=== PATIENT | female | born 1940 | race African-American/Black ===

== ENCOUNTER 2018-03-05 19:53 | Inpatient (IN) | payer BC, OTHER ==
[~2018-03-05] VITALS: Ht 157.5 cm; Wt 58.5 kg
[2018-03-05] MEDS ORDERED: ADALAT10 MG ORAL (19:58)
[2018-03-05] MEDS ORDERED: METOPROLOL SUCC25 MG ORAL (19:58)
[2018-03-05] MEDS ORDERED: AMLODIPINE BES2.5 MG ORAL (19:58)
[2018-03-05] MEDS ORDERED: LOPRESSOR5 MG/5 ML IV (19:58)
[2018-03-05] MEDS ORDERED: LISINOPRIL5 MG ORAL (19:58)
[2018-03-05 20:00] VITALS: BP 144/74
--- NOTE | 2018-03-05 20:03 | Emergency Room Report ---
History of Present Illness General Chief Complaint: Abnormal Labs Source: Patient, EMS Present Illness HPI Patient is a 77-year-old female brought in by EMS after altered mental status. Patient was noted to have the decreased blood sugar. Patient had prior history of intermittent episodes of hypoglycemia. Patient was noted to have end-stage renal disease and had been dialyzed on Friday. She reports having had generalized cold sensation. The patient had been given D50 by EMS after her sugar was noted to be in the 30s with improved blood sugar greater than 300. Allergies: Coded Allergies: No Known Allergies (Verified , 06/09/11) Patient History Past Medical History: see triage record, DM, dialysis, other Last Menstrual Period: none Reviewed Nursing Documentation: PMH: Agreed; PSxH: Agreed Nursing Documentation-PMH Hx Hypertension: Yes Hx Diabetes: Yes Hx Dialysis: Yes - MWF Review of Systems All Other Systems: negative except mentioned in HPI Physical Exam Vital Signs Date Time Temp Pulse Resp B/P (MAP) Pulse Ox O2 Delivery O2 Flow Rate FiO2 03/05/18 19:53 98.9 70 18 192/87 98 Room Air 99.0 Sp02 EP Interpretation: reviewed, normal General Appearance: normal inspection, GCS 15, Chronically Ill Head: atraumatic ENT: normal ENT inspection, hearing grossly normal, normal voice Neck: normal inspection, full range of motion, supple, no bony tend Respiratory: normal inspection, lungs clear, normal breath sounds, no respiratory distress, no retraction, no wheezing Cardiovascular #1: regular rate, rhythm, no edema Gastrointestinal: normal inspection, normal bowel sounds, non tender, soft, no guarding, no hernia Genitourinary: no CVA tenderness Musculoskeletal: normal inspection, back normal, normal range of motion Neurologic: normal inspection, alert, oriented x3, responsive, business intelligence analyst III-XII nml as tested, motor strength/tone normal, speech normal Psychiatric: normal inspection, judgement/insight normal, mood/affect normal Skin: normal inspection, normal color, no rash, pallor Medical Decision Making Diagnostic Impression: Primary Impression: Hypoglycemia Additional Impressions: ESRD (end stage renal disease) Generalized weakness ER Course Patient presented for low blood sugar. The differential diagnosis included was not limited to adrenal insufficiency, insulin overdose, sepsis, sulfonylurea overdose among others.Because of complexity of patient's case laboratory testing and imaging studies were ordered.EKG interpreted by me showed normal sinus rhythm with a rate of 59 with right bundle-branch block without acute ST or T wave changes. Patient was noted to have improvement in blood sugar. Patient was discussed with Dr. Alfredo who agreed to admit the patient. I attempted to contact Dr. Velez for renal consult, will endorse this consult to Dr. Bar. Labs Test 03/05/18 20:20 White Blood Count 4.5 K/UL (4.8-10.8) Red Blood Count 4.26 M/UL (4.20-5.40) Hemoglobin 11.9 G/DL (12.0-16.0) Hematocrit 37.0 % (37.0-47.0) Mean Corpuscular Volume 87 FL (80-99) Mean Corpuscular Hemoglobin 28.0 PG (27.0-31.0) Mean Corpuscular Hemoglobin Concent 32.2 G/DL (32.0-36.0) Red Cell Distribution Width 15.2 % (11.6-14.8) Platelet Count 164 K/UL (150-450) Mean Platelet Volume 5.1 FL (6.5-10.1) Neutrophils (%) (Auto) 55.1 % (45.0-75.0) Lymphocytes (%) (Auto) 27.9 % (20.0-45.0) Monocytes (%) (Auto) 11.3 % (1.0-10.0) Eosinophils (%) (Auto) 4.1 % (0.0-3.0) Basophils (%) (Auto) 1.6 % (0.0-2.0) Sodium Level 135 MMOL/L (136-145) Potassium Level 4.4 MMOL/L (3.5-5.1) Chloride Level 100 MMOL/L (98-107) Carbon Dioxide Level 23 MMOL/L (21-32) Anion Gap 12 mmol/L (5-15) Blood Urea Nitrogen 41 mg/dL (7-18) Creatinine 7.6 MG/DL (0.55-1.30) Estimat Glomerular Filtration Rate mL/min (>60) Glucose Level 194 MG/DL (74-106) Lactic Acid Level 1.00 mmol/L (0.4-2.0) Calcium Level 9.9 MG/DL (8.5-10.1) Total Bilirubin 0.5 MG/DL (0.2-1.0) Aspartate Amino Transf (AST/SGOT) 35 U/L (15-37) Alanine Aminotransferase (ALT/SGPT) 23 U/L (12-78) Alkaline Phosphatase 69 U/L (46-116) Troponin I 0.009 ng/mL (0.000-0.056) Total Protein 8.5 G/DL (6.4-8.2) Albumin 3.5 G/DL (3.4-5.0) Globulin 5.0 g/dL Albumin/Globulin Ratio 0.7 (1.0-2.7) EKG Diagnostic Results Rate: normal Rhythm: NSR ST Segments: other - rbbb Last Vital Signs Date Time Temp Pulse Resp B/P (MAP) Pulse Ox O2 Delivery O2 Flow Rate FiO2 03/05/18 19:53 98.9 70 18 192/87 98 Room Air 99.0 Status: unchanged Disposition: ADMITTED INPATIENT Condition: Serious Jose Ortiz MD Mar 05, 2018 20:03
[2018-03-05] MEDS ORDERED: LISINOPRIL40 MG ORAL (20:50)
[2018-03-05] MEDS ORDERED: CATAPRES-TTS 21 EACH TDERMAL (20:50)
[2018-03-05] MEDS ORDERED: BETIMOL5 M2 LEFT EYE (20:50)
[2018-03-05] MEDS ORDERED: METOPROLOL TART50 M1 ORAL (20:50)
[2018-03-05] MEDS ORDERED: HUMIRA40 MG/0.2 SUBQ (20:50)
[2018-03-05] MEDS ORDERED: AMLODIPINE BESY10 MG ORAL (20:50)
[2018-03-05] MEDS ORDERED: NIFEDIPINE ER60 M2 ORAL (20:50)
[2018-03-05] MEDS ORDERED: MULTIVITAMINS1 EAC2 ORAL (20:50)
[2018-03-05 20:56] LABS: BASOPHILS % (AUTO) 1.6 % (0.0-2.0); EOSINOPHILS % (AUTO) 4.1 % (0.0-3.0); HEMOGLOBIN 11.9 G/DL (12.0-16.0); LYMPHOCYTES % (AUTO) 27.9 % (20.0-45.0); MEAN CORPUSCULAR VOLUME 87 FL (80-99); MONOCYTES % (AUTO) 11.3 % (1.0-10.0); NEUTROPHILS % (AUTO) 55.1 % (45.0-75.0); PLATELET COUNT 164 K/UL (150-450); RED BLOOD COUNT 4.26 M/UL (4.20-5.40); RED CELL DISTRIBUTION WIDTH 15.2 % (11.6-14.8); WHITE BLOOD COUNT 4.5 K/UL (4.8-10.8)
[2018-03-05 21:10] LABS: ANION GAP 12 mmol/L (5-15); BLOOD UREA NITROGEN 41 mg/dL (7-18); CALCIUM 9.9 MG/DL (8.5-10.1); CARBON DIOXIDE 23 MMOL/L (21-32); CHLORIDE 100 MMOL/L (98-107); CREATININE 7.6 MG/DL (0.55-1.30); POTASSIUM 4.4 MMOL/L (3.5-5.1); SODIUM 135 MMOL/L (136-145)
[2018-03-05 21:14] LABS: ALANINE AMINOTRANSFERASE 23 U/L (12-78); ALBUMIN 3.5 G/DL (3.4-5.0); ALBUMIN/GLOBULIN RATIO 0.7 (1.0-2.7); ALKALINE PHOSPHATASE 69 U/L (46-116); ASPARTATE AMINO TRANSFERASE 35 U/L (15-37); BILIRUBIN,TOTAL 0.5 MG/DL (0.2-1.0)
[2018-03-05] MEDS ORDERED: D5 1/2NS 1,000 ML IV SCH (22:00)
[2018-03-05] MEDS ORDERED: Lisinopril 20mg tab ORAL SCH (23:30)
[2018-03-05] MEDS ORDERED: Metoprolol Tartrate 50mg tab ORAL SCH (23:30)
[2018-03-06] VITALS (7 sets, daily range): BP systolic 143–194; BP diastolic 67–104
[2018-03-06 06:15] LABS: BASOPHILS % (AUTO) 1.7 % (0.0-2.0); EOSINOPHILS % (AUTO) 4.7 % (0.0-3.0); HEMATOCRIT 36.6 % (37.0-47.0); HEMOGLOBIN 11.8 G/DL (12.0-16.0); LYMPHOCYTES % (AUTO) 26.4 % (20.0-45.0); MEAN CORPUSCULAR VOLUME 87 FL (80-99); MONOCYTES % (AUTO) 11.6 % (1.0-10.0); NEUTROPHILS % (AUTO) 55.7 % (45.0-75.0); PLATELET COUNT 199 K/UL (150-450); RED BLOOD COUNT 4.21 M/UL (4.20-5.40); RED CELL DISTRIBUTION WIDTH 14.9 % (11.6-14.8); WHITE BLOOD COUNT 5.5 K/UL (4.8-10.8)
[2018-03-06] MEDS: NovoLOG Insulin Flexpen SUBQ SCH ×4 (06:37→20:56)
[2018-03-06 06:49] LABS: ALANINE AMINOTRANSFERASE 21 U/L (12-78); ALBUMIN 3.2 G/DL (3.4-5.0); ALBUMIN/GLOBULIN RATIO 0.7 (1.0-2.7); ALKALINE PHOSPHATASE 73 U/L (46-116); ANION GAP 10 mmol/L (5-15); ASPARTATE AMINO TRANSFERASE 27 U/L (15-37); BILIRUBIN,TOTAL 0.3 MG/DL (0.2-1.0); BLOOD UREA NITROGEN 46 mg/dL (7-18); CALCIUM 9.2 MG/DL (8.5-10.1); CARBON DIOXIDE 25 MMOL/L (21-32); CHLORIDE 103 MMOL/L (98-107); CHOLESTEROL 139 MG/DL (< 200); CREATININE 7.7 MG/DL (0.55-1.30); HDL CHOLESTEROL 85 MG/DL (40-60); PHOSPHORUS 5.3 MG/DL (2.5-4.9); POTASSIUM 4.8 MMOL/L (3.5-5.1); SODIUM 138 MMOL/L (136-145); TRIGLYCERIDES 25 MG/DL (30-150)
[2018-03-06] MEDS: Lisinopril 20mg tab ORAL SCH ×2 (09:00→17:26)
[2018-03-06] MEDS ORDERED: Metoprolol Tartrate 50mg tab ORAL SCH (09:00)
--- NOTE | 2018-03-06 09:40 | Consultation ---
Consult Note Consult Note asked to eval for dialysis management Patient is a 77-year-old female brought in by EMS after altered mental status. Patient was noted to have the decreased blood sugar. Patient had prior history of intermittent episodes of hypoglycemia. Patient was noted to have end-stage renal disease and had been dialyzed on Friday. She reports having had generalized cold sensation. The patient had been given D50 by EMS after her sugar was noted to be in the 30s with improved blood sugar greater than 300. No Known Allergies (Verified , 06/09/11) Hx Hypertension: Yes Hx Diabetes: Yes Hx Dialysis: Yes - MWF interviewed examined on HD for past 6 months dialysis site in [place] complains of right hand weakness since yesterday Assessment/Plan ESRD HTN Right hand weakness DM by history Adjust BP meds- HD today ASA Gastric support 2D echo MR Brain Neuro eval? Zion Velez MD Mar 06, 2018 09:40
[2018-03-06] MEDS ORDERED: Metoprolol 25mg tab ORAL SCH (10:00)
[2018-03-06] MEDS: Aspirin Baby 81mg ORAL SCH (10:32)
--- NOTE | 2018-03-06 11:19 | Diagnostic Imaging Report ---
Indication: Shortness of breath Technique: One view of the chest Comparison: none Findings: There is a right chest tunneled dialysis catheter in place. The lungs and pleural spaces are clear. The heart size is borderline enlarged. The aorta is tortuous and calcified Impression: No acute process Borderline cardiomegaly
--- NOTE | 2018-03-06 11:31 | Consultation ---
Consult Note Consult Note NEUROLOGY CONSULTATION: Full note dictated #[id number] 77 y/o, RH, BF with PH of HTN, DM, ESRD on HD. On 03/05/18 on awakening she noted that her right hand was weak and numb. Then when she tried to walk she also noted that her right leg was weak. The problem has continued. ON EXAM: Mild problems with memory, VSF, HCF and language. Right VII central Right hemiparesis. Brisker right DTRs - though DTRs globally decreased. Right paretic gait. IMPRESSION: Left brain stroke with right hemiparesis. REC: MRI of brain. CVNIP W/U for stroke. If no cerebral hemorrhage start Plavix. BP/BS control PT/OT/SLT Mulugeta Velarde M.D., M.S.P.H. MULUGETA VELARDE Mar 06, 2018 11:31
[2018-03-06] MEDS: Docusate 100mg cap ORAL SCH ×2 (13:36→17:26)
--- NOTE | 2018-03-06 13:50 | Diagnostic Imaging Report ---
Indication: 77-year-old female with right hemiparesis Technique: sagittal T1 fast spin echo, axial T1 FLAIR, axial T2 FLAIR, axial T2 FS PROPELLER, axial T2* GRE, axial diffusion weighted images. ADC and exponential ADC maps generated Comparison: 06/10/2011 Findings: There is a focus of diffusion restriction in the medulla just to the left of midline. This demonstrates slightly increased T2 signal. No associated hemorrhage. There is a subtle area of diffusion restriction adjacent to the temporal horn of the right lateral ventricle where it joins the atria, with equivocal evidence of associated T2 abnormality. No evidence of associated hemorrhage. No other foci of restricted diffusion are demonstrated. There is a small punctate focus of susceptibility artifact in the right temporal lobe. No acute hemorrhage or edema. No mass effect nor midline shift. There is age-related enlargement of the ventricles and extra axial CSF spaces. There is fairly extensive focal and confluent periventricular and deep white matter T2 hyperintensity there is evidence of prior cataract surgery on the left. The sinuses are clear. The vascular flow voids are intact.. Visualized orbits and sinuses are unremarkable. Impression: Positive for acute infarct of the left side of the medulla Subtle but probable acute focal lacunar infarct of the right temporal lobe in the periventricular region Negative for acute intracranial bleed or mass effect Age-related volume loss. Periventricular deep white matter high T2 signal, probably on the basis of chronic microvascular ischemic changes. Demyelinating disease less likely, also possibility Findings discussed by phone with Dr. Velarde at the time of interpretation
--- NOTE | 2018-03-06 16:45 | History and Physical Report ---
DATE OF ADMISSION: 03/05/2018 HISTORY OF PRESENT ILLNESS: This is a very pleasant 77-year-old female, who was brought in by paramedics because of altered mental status. The patient was noted to be hypoglycemic. There are previous episodes of hyperglycemia as well. The patient has a history of ESRD and she is on dialysis. She was last dialyzed on Friday, which was 24 hours ago. The patient also reports that her right upper extremity is weak and it started in the last 24 to 48 hours. PAST MEDICAL HISTORY: Notable for hypertension, diabetes mellitus, and ESRD, on dialysis. SURGERIES: Right PermCath catheter. HOME MEDICATIONS: Include Colace, Renvela, Lopressor, aspirin, multivitamins, Prinivil, nifedipine, insulin sliding scale presently, and hydralazine. She is not known to be on any long-acting sulfonylurea. ALLERGIES: None reported. PHYSICAL EXAMINATION: GENERAL: Reveals an elderly female. VITAL SIGNS: Blood pressure is 130/70, heart rate is 57, and respirations 18. She is afebrile. HEENT: Unremarkable. CHEST: Shows clear breath sounds bilaterally. ABDOMEN: Soft. EXTREMITIES: Right PermCath catheter is noted. There is no peripheral edema. No signs of clubbing. NEUROLOGIC: She is alert and oriented x3. She has mild 4+/5 weakness of the right upper extremity. Remainder of the exam is unremarkable. LABORATORY DATA: Lab testing is notable for creatinine of 7.7, proBNP 2264, and albumin 3.2. Hemoglobin A1c 6.1. Hemoglobin 11.8 and platelet count is normal. IMPRESSION: 1. Rule out cerebrovascular accident. 2. Hypoglycemia. 3. End-stage renal disease, on dialysis. DISCUSSION: 1. Admit to the hospital. 2. We will monitor on sliding scale. 3. Continue diet. 4. Continue home medications. 5. Avoid oral hypoglycemics. 6. We will consult Neurology for the possibility of a new CVA. We will also order MRI brain. Baljit Alfredo M.D. DR: CHRISTINA JOB#: [id number] CC:
--- NOTE | 2018-03-06 18:30 | Consultation ---
DATE OF CONSULTATION: 03/06/2018 NEUROLOGY CONSULTATION CONSULTING PHYSICIAN: Keith Velarde M.D. REQUESTING PHYSICIAN: Nick Alfredo M.D. HISTORY: Ms July Hardwick is a 77-year-old, right-handed, black lady, from [place] who does have a past history of hypertension, diabetes mellitus, and end-stage renal disease for which she is hemodialysis dependent. On 03/05/2018, on awakening, she noted that her right hand was weak and numb. When she tried to walk, she also noted that her right leg was weak and she was quite unsteady on her feet. She did not notice any problems with speech, language, vision or other neurological symptoms. She denies any similar symptoms in the past. As these problems continued, she presented to the [facility] Emergency Room and has since been admitted. Today, she feels minimally better compared to yesterday. She however still continues to have significant weakness on the right side. PAST MEDICAL HISTORY: Significant for hypertension, diabetes mellitus, and end-stage renal disease for which she is hemodialysis dependent. FAMILY HISTORY: Significant for high blood pressure and diabetes mellitus in other family members. PERSONAL HISTORY: Home: She lives alone. 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 Habits: She used to smoke in the past, but stopped smoking numerous years ago. She used to have a rare alcoholic drink in the past, but stopped drinking numerous years ago. She denies use of any illicit drugs. MEDICATIONS: Present medications include metoprolol, Renvela, Colace, aspirin 162 mg daily, multivitamins, lisinopril, nifedipine, insulin and hydralazine. PHYSICAL EXAMINATION: GENERAL: She is a well-developed, well-nourished, pleasant black lady, lying in bed, in no acute distress. VITAL SIGNS: Pulse 57/minute, blood pressure 150/70 mmHg, respirations 18/minute, and temperature 97.5 degrees Fahrenheit. HEAD: Normocephalic and atraumatic. NECK: No neck rigidity was observed. EENT: Examination benign. NEUROLOGIC EXAMINATION: MENTAL STATUS EXAMINATION: She was awake and alert. She was oriented to person, place, and time. She was able to recall 3/3 words immediately, but could only remember 2/3 words in 1 minute and 3 minutes. She was able to remember presidents Trump through Rice Haroon spontaneously, but needed hints to remember through Rice senior. Her mathematical skills were impaired. Her visuospatial function was also impaired. SPEECH: She had a mild dysarthria for labial nature. LANGUAGE: She had anomia for low-frequency words. CRANIAL NERVE EXAMINATION: II: The visual marie were intact on confrontation testing. III, IV & : External ocular movements were full and the pupils 3 mm in diameter, equal, round, regular, and reactive to light. V: She had normal facial sensations and the temporales, masseters, and pterygoids functioned normally. VII: She had right VII central facial paresis. VIII: She was able to hear well and had no nystagmus. IX: The palate moved symmetrically on phonation. X: She had no hoarseness of voice. XI: The sternocleidomastoids and trapezii functioned normally. XII: The tongue was in the midline without any fasciculations or atrophy. MOTOR SYSTEM: The tone was normal in all four extremities. Examination of muscle mass revealed no focal wasting. Examination of power revealed G 5/5 power except for G 4/5 power in the right finger extensors, G 4+/5 power in the right finger flexors, G 4+/5 power in the right deltoid, G 4/5 power in the right iliopsoas, and G 4+/5 power in the right toe extensors, and ankle dorsiflexors. SENSORY EXAMINATION: She had intact sensations to pinprick, light touch, and graphesthesia. COORDINATION: She performed well on edwnjn-sa-bwpv and vlgd-bw-dfjd testing, but the movements on the right side were performed in a slow fashion. REFLEXES: 1+ on the right and trace + on the left at the biceps, triceps, brachioradialis, and knees. 0 at both ankles. The plantar responses were flexor bilaterally. STANCE: She stood up with support on the left side. GAIT: She walked with support on the left side with a mildly right paretic gait. DIAGNOSTIC IMPRESSION: 1. Ms July Hardwick is a 77-year-old, right-handed, black lady, who does have a past history of hypertension, diabetes mellitus, and end-stage renal disease for which she is hemodialysis dependent, who on awakening on 03/05/2018 noted that the right hand was weak and numb. Later on when she tried to walk, she also noticed that her right leg was weak. The problem has continued. 2. On neurological examination, at this time, she does have problems with recent and remote memory, visuospatial function, higher cognitive function, and language. She also has a right VII central facial paresis, right hemiparesis involving the upper and lower extremities, brisker right deep tendon reflexes, but the reflexes are globally diminished bilaterally and in addition, a mildly right paretic gait. 3. Laboratory data obtained thus far have revealed that her BUN is elevated to 46, her creatinine is elevated to 7.7, her blood glucose is elevated to 173, and hemoglobin A1c is elevated to 6.1%. Her proBNP is elevated to 2264. Her albumin is down at 3.2. Her total cholesterol is 139 with an LDL of 60 and HDL of 85. Her vitamin B12 level is normal at 848. Her folate is normal at 23.8 and a TSH is normal at 1.06. Her CBC reveals that she is anemic with a hemoglobin of 11.8 G. 4. The patient's history and neurological examination are most compatible with left brain stroke associated with a right hemiparesis involving the face, upper and lower extremities. 5. The most likely etiology for the patient's stroke would be hypertensive diabetic small-vessel disease. RECOMMENDATIONS: 1. Agree with management thus far. 2. An MRI scan of the brain should be ordered to evaluate the patient for her acute cerebral event. 3. A cerebrovascular noninvasive profile should be performed to evaluate the patient for hemodynamically significant carotid disease. 4. She should be worked up thoroughly for other treatable causes of stroke with an ESR and RPR in addition to the laboratory tests already done. 5. If no intracranial hemorrhage is seen on the MRI scan, then the patient should be started on Plavix 75 mg daily for secondary stroke prevention. 6. The patient's blood pressure should be brought down into physiological range, that equal to or less than 120/80. 7. The patient's blood sugars should be controlled well. 8. She should be started on a course of physical, occupational and speech and language therapy to rehabilitate her. Thank you for entrusting me with the care of Ms Hardwick. I shall follow her with you. Keith Velarde M.D., M.S.P.H. DR: MATTEO JOB#: [id number] MTDD
[2018-03-06] MEDS: HydrALAZINE 25mg tab ORAL PRN (18:38)
[2018-03-06] MEDS: Metoprolol 25mg tab ORAL SCH (20:55)
[2018-03-06] MEDS ORDERED: D5 1/2NS 1,000 ML IV SCH (22:00)
[2018-03-07] VITALS: BP 154/90
[2018-03-07 04:00] VITALS: BP 150/86
[2018-03-07] MEDS: NovoLOG Insulin Flexpen SUBQ SCH ×4 (06:20→21:43)
[2018-03-07 08:00] VITALS: BP 176/92
[2018-03-07] MEDS: Docusate 100mg cap ORAL SCH ×3 (08:27→17:01)
[2018-03-07] MEDS: Aspirin Baby 81mg ORAL SCH (08:28)
[2018-03-07] MEDS: Metoprolol 25mg tab ORAL SCH ×2 (08:28→21:39)
[2018-03-07] MEDS: Lisinopril 20mg tab ORAL SCH ×2 (08:29→17:01)
--- NOTE | 2018-03-07 09:32 | Nephrology Progress Note ---
Assessment/Plan Problem List: (1) ESRD (end stage renal disease) (2) Acute CVA (cerebrovascular accident) (3) Hypertensive kidney disease (4) Diabetes Assessment left brain stroke MRI: Positive for acute infarct of the left side of the medulla- Subtle but probable acute focal lacunar infarct of the right temporal lobe in the periventricular region Plan dialysed 03/06 next HD 03/09 BP med adjustment add hydralazine asa per neuro PT OT Subjective ROS Limited/Unobtainable: No Constitutional: Reports: malaise Objective Objective Last 24 Hour Vital Signs Date Time Temp Pulse Resp B/P (MAP) Pulse Ox O2 Delivery O2 Flow Rate FiO2 03/07/18 09:00 Room Air 03/07/18 08:29 176/92 03/07/18 08:28 62 176/92 03/07/18 08:27 62 176/92 03/07/18 08:00 97.8 62 18 176/92 (120) 95 97.8 03/07/18 04:00 97.9 62 18 150/86 (107) 97.9 03/07/18 04:00 60 03/07/18 00:00 97.8 55 19 154/90 (111) 97.8 03/07/18 00:00 60 03/06/18 21:00 Room Air 03/06/18 20:55 68 155/75 03/06/18 20:00 98.1 50 18 155/75 (101) 98.1 03/06/18 20:00 58 03/06/18 19:17 Room Air 03/06/18 19:15 98.8 52 16 194/104 (134) 98.8 03/06/18 18:38 194/104 03/06/18 16:00 59 03/06/18 15:00 Room Air 03/06/18 15:00 98.4 64 16 166/84 (111) 98.4 03/06/18 13:00 56 03/06/18 12:00 97.7 57 18 143/67 (92) 100 97.7 03/06/18 12:00 57 Intake and Output 03/06/18 03/07/18 19:00 07:00 Intake Total 120 ml 240 ml Output Total 250 ml 1000 ml Balance -130 ml -760 ml Intake Oral 120 ml 240 ml Output Urine Total 250 ml Hemodialysis UF 1000 ml # Voids 3 Height (Feet): 5 Height (Inches): 2.00 Weight (Pounds): 129 EENT: normal ENT inspection Cardiovascular: normal rate Respiratory/Chest: lungs clear Abdomen: soft Neurologic: other - right hand weak Zion Velez MD Mar 07, 2018 09:32
--- NOTE | 2018-03-07 10:06 | Pulmonology Progress Note ---
Assessment/Plan Assessment/Plan IMPRESSION: 1. Acute cerebrovascular accident. 2. Hypoglycemia. 3. End-stage renal disease, on dialysis. DISCUSSION: 1. Admit to the hospital. 2. Continue sliding scale. 3. Continue diet. 4. Continue home medications. 5. Avoid oral hypoglycemics. 6. Seen by Neurology for new CVA. Reviewed MRI brain. Subjective Interval Events: MRI confirmed acute CVA Constitutional: Reports: no symptoms HEENT: Repors: no symptoms Respiratory: Reports: no symptoms Cardiovascular: Reports: no symptoms Gastrointestinal/Abdominal: Reports: no symptoms Genitourinary: Reports: no symptoms Neurologic: Reports: weakness Psychiatric: Reports: no symptoms Skin: Reports: no symptoms Allergies: Coded Allergies: No Known Allergies (Verified , 06/09/11) Objective Last 24 Hour Vital Signs Date Time Temp Pulse Resp B/P (MAP) Pulse Ox O2 Delivery O2 Flow Rate FiO2 03/07/18 09:00 Room Air 03/07/18 08:29 176/92 03/07/18 08:28 62 176/92 03/07/18 08:27 62 176/92 03/07/18 08:00 63 03/07/18 08:00 97.8 62 18 176/92 (120) 95 97.8 03/07/18 04:00 97.9 62 18 150/86 (107) 97.9 03/07/18 04:00 60 03/07/18 00:00 97.8 55 19 154/90 (111) 97.8 03/07/18 00:00 60 03/06/18 21:00 Room Air 03/06/18 20:55 68 155/75 03/06/18 20:00 98.1 50 18 155/75 (101) 98.1 03/06/18 20:00 58 03/06/18 19:17 Room Air 03/06/18 19:15 98.8 52 16 194/104 (134) 98.8 03/06/18 18:38 194/104 03/06/18 16:00 59 03/06/18 15:00 Room Air 03/06/18 15:00 98.4 64 16 166/84 (111) 98.4 03/06/18 13:00 56 03/06/18 12:00 97.7 57 18 143/67 (92) 100 97.7 03/06/18 12:00 57 Intake and Output 03/06/18 03/07/18 19:00 07:00 Intake Total 120 ml 240 ml Output Total 250 ml 1000 ml Balance -130 ml -760 ml Intake Oral 120 ml 240 ml Output Urine Total 250 ml Hemodialysis UF 1000 ml # Voids 3 General Appearance: no acute distress HEENT: normocephalic Respiratory/Chest: chest wall non-tender, lungs clear Cardiovascular: normal peripheral pulses, normal rate Abdomen: normal bowel sounds, soft, non tender Current Medications Medications (Trade) Dose Ordered Sig/Delta Route PRN Reason Start Time Stop Time Status Last Admin Dose Admin Aspirin (ASA) 162 mg DAILY ORAL 03/06/18 09:45 04/05/18 09:44 03/07/18 08:28 Dextrose (Dextrose 50%) 25 ml STAT PRN IV Hypoglycemia 03/05/18 23:15 04/04/18 23:14 Dextrose (Dextrose 50%) 50 ml STAT PRN IV Hypoglycemia 03/05/18 23:15 04/04/18 23:14 Docusate Sodium (Colace) 100 mg THREE TIMES A DAY ORAL 03/06/18 13:00 04/05/18 12:59 03/07/18 08:27 Hydralazine HCl (Apresoline) 25 mg Q4H PRN ORAL bp over 160 syst 03/06/18 00:00 04/05/18 00:00 03/06/18 18:38 Hydralazine HCl (Apresoline) 50 mg Q8HR ORAL 03/07/18 14:00 04/06/18 13:59 Insulin Aspart (NovoLOG) BEFORE MEALS AND HS SUBQ 03/06/18 06:30 04/05/18 06:29 03/06/18 20:56 Lisinopril (Prinivil) 40 mg BID ORAL 03/06/18 09:00 04/04/18 23:29 03/07/18 08:29 Metoprolol Tartrate (Lopressor) 25 mg EVERY 12 HOURS ORAL 03/06/18 21:00 04/04/18 08:59 03/07/18 08:28 Nifedipine (Procardia XL) 60 mg BID ORAL 03/06/18 09:00 04/05/18 08:59 03/07/18 08:27 Sevelamer Carbonate (Renvela) 800 mg THREE TIMES A DAY ORAL 03/06/18 13:00 9/2/18 12:59 03/07/18 08:27 Baljit Alfredo MD Mar 07, 2018 10:06
[2018-03-07 12:00] VITALS: BP 174/93
[2018-03-07] MEDS: HydrALAZINE 50mg tab ORAL SCH ×2 (13:09→21:39)
--- NOTE | 2018-03-07 14:12 | Diagnostic Imaging Report ---
APPROVED REPORT CPT Code: 45826 Vascular Symptoms CVA/TIA: Doppler Spectral Velocity Analysis RightLeft RIGHT SIDE: CCA - Imaging reveals no significant plaque in the common carotid artery. ICA arteries. The Doppler signal indicates the degree of stenosis is minimal (20%) in the internal carotid, and (10%) in the external carotid arteries. VERTEBRAL - The vertebral artery is patent, without evidence of stenosis or steal. LEFT SIDE: CCA - Imaging reveals no significant plaque in the common carotid artery. ICA arteries. The Doppler signal indicates the degree of stenosis is minimal (30%) in the internal carotid, and (20%) in the external carotid arteries. VERTEBRAL - The vertebral artery is patent, without evidence of stenosis or steal.
--- NOTE | 2018-03-07 15:25 | Neurology Progress Note ---
Interim History Interim History Interim History Ms. Hardwick is tearful. The right hand is significantly weaker. The right leg is a little weaker. The speech and language are normal. She denies any new neurologic symptoms. Review of Systems Neuro Review of Systems Benign. Objective Physical Exam Last Vital Signs Date Time Temp Pulse Resp B/P (MAP) Pulse Ox O2 Delivery O2 Flow Rate FiO2 03/07/18 13:09 174/93 03/07/18 12:00 57 03/07/18 12:00 97.9 19 98 97.9 03/07/18 09:00 Room Air Laboratory Tests Test 03/07/18 10:30 C-Reactive Protein, Quantitative < 0.4 mg/dL (0.00-0.90) Neurologic Exam Objective PHYSICAL EXAMINATION: GENERAL: She is a well-developed, well-nourished, pleasant black lady, lying in bed, in no acute distress. HEAD: Normocephalic and atraumatic. NECK: No neck rigidity was observed. EENT: Examination benign. NEUROLOGIC EXAMINATION: MENTAL STATUS EXAMINATION: She was awake and alert. She was oriented to person, place, and time. She was able to recall 3/3 words immediately, but could only remember 2/3 words in 1 minute and 3 minutes. She was able to remember presidents Trump through [employer] spontaneously, but needed hints to remember through [employer]. Her mathematical skills were impaired. Her visuospatial function was also impaired. SPEECH: She had a mild dysarthria for labial nature. LANGUAGE: She had anomia for low-frequency words. CRANIAL NERVE EXAMINATION: II: The visual marie were intact on confrontation testing. III, IV & : External ocular movements were full and the pupils 3 mm in diameter, equal, round, regular, and reactive to light. V: She had normal facial sensations and the temporales, masseters, and pterygoids functioned normally. VII: She had right VII central facial paresis. VIII: She was able to hear well and had no nystagmus. IX: The palate moved symmetrically on phonation. X: She had no hoarseness of voice. XI: The sternocleidomastoids and trapezii functioned normally. XII: The tongue was in the midline without any fasciculations or atrophy. MOTOR SYSTEM: The tone was normal in all four extremities. Examination of muscle mass revealed no focal wasting. Examination of power revealed G 5/5 power except for G 1/5 power in the right finger extensors, G 3/5 power in the right finger flexors, G 4/5 power in the right deltoid, G 4-/5 power in the right iliopsoas, and G 4/5 power in the right toe extensors, and ankle dorsiflexors. SENSORY EXAMINATION: She had intact sensations to pinprick, light touch, and graphesthesia. COORDINATION: She performed well on [id number] and mppu-um-cmnn testing, but the movements on the right side were performed in a slow fashion. REFLEXES: 1+ on the right and trace + on the left at the biceps, triceps, brachioradialis, and knees. 0 at both ankles. The plantar responses were flexor bilaterally. STANCE: She stood up with support on the left side. GAIT: She walked with support on the left side with a mildly right paretic gait. Impression/Recommendations Diagnostic Impression 1. Ms July Hardwick is a 77-year-old, right-handed, black lady, who does have a past history of hypertension, diabetes mellitus, and end-stage renal disease for which she is hemodialysis dependent, who on awakening on 03/05/2018 noted that the right hand was weak and numb. Later on when she tried to walk, she also noticed that her right leg was weak. 2. She is tearful. The right hand is significantly weaker. The right leg is a little weaker. The speech and language are normal. She denies any new neurologic symptoms. 3. On neurological examination, at this time, she does have problems with recent and remote memory, visuospatial function, higher cognitive function, and language. She also has a right VII central facial paresis, right hemiparesis involving the upper and lower extremities - which is worse today, brisker right deep tendon reflexes, but the reflexes are globally diminished bilaterally and in addition, a mildly right paretic gait. 4. Laboratory data obtained thus far have revealed that her BUN is elevated to 46, her creatinine is elevated to 7.7, her blood glucose is elevated to 173, and hemoglobin A1c is elevated to 6.1%. Her proBNP is elevated to 2264. Her albumin is down at 3.2. Her total cholesterol is 139 with an LDL of 60 and HDL of 85. Her vitamin B12 level is normal at 848. Her folate is normal at 23.8 and a TSH is normal at 1.06. Her CBC reveals that she is anemic with a hemoglobin of 11.8 G. 5. The MRI of the brain revealed a high left medullary infarct and a questionable small area of infarct in the right temporal deep white matter. 6. The CVNIP revealed 20% right and 30% left ICA stenosis. 7. 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 8. The most likely etiology for the patient's stroke would be hypertensive diabetic small-vessel disease. Recommendations 1. Continue present management. 2. Await results of RPR. 3. Plavix 75 mg daily for secondary stroke prevention. 4. The patient's blood pressure should be brought down into physiological range , that equal to or less than 120/80. 5. The patient's blood sugars should be controlled well. 6. Physical, occupational and speech and language therapy to rehabilitate her. Mulugeta Long M.D., M.S.[facility]. MULUGETA LONG Mar 07, 2018 15:25
[2018-03-07 15:39] VITALS: BP 168/79
[2018-03-07 20:00] VITALS: BP 186/82
[2018-03-07] MEDS: Dyna-Hex 2% Top Sol 2oz TOPIC SCH (20:46)
[2018-03-08] VITALS: BP 157/71
[2018-03-08 04:00] VITALS: BP 151/76
[2018-03-08] MEDS: NovoLOG Insulin Flexpen SUBQ SCH ×4 (05:51→21:36)
[2018-03-08] MEDS: HydrALAZINE 50mg tab ORAL SCH ×3 (06:06→21:33)
[2018-03-08 07:12] LABS: BASOPHILS % (AUTO) 1.4 % (0.0-2.0); EOSINOPHILS % (AUTO) 5.3 % (0.0-3.0); HEMATOCRIT 40.7 % (37.0-47.0); HEMOGLOBIN 13.2 G/DL (12.0-16.0); LYMPHOCYTES % (AUTO) 36.5 % (20.0-45.0); MEAN CORPUSCULAR VOLUME 87 FL (80-99); MONOCYTES % (AUTO) 9.8 % (1.0-10.0); NEUTROPHILS % (AUTO) 46.9 % (45.0-75.0); PLATELET COUNT 225 K/UL (150-450); RED BLOOD COUNT 4.68 M/UL (4.20-5.40); RED CELL DISTRIBUTION WIDTH 15.3 % (11.6-14.8)
[2018-03-08 07:23] LABS: ALANINE AMINOTRANSFERASE 23 U/L (12-78); ALBUMIN 3.3 G/DL (3.4-5.0); ALBUMIN/GLOBULIN RATIO 0.7 (1.0-2.7); ALKALINE PHOSPHATASE 66 U/L (46-116); ANION GAP 12 mmol/L (5-15); ASPARTATE AMINO TRANSFERASE 26 U/L (15-37); BILIRUBIN,TOTAL 0.3 MG/DL (0.2-1.0); BLOOD UREA NITROGEN 59 mg/dL (7-18); CALCIUM 10.2 MG/DL (8.5-10.1); CARBON DIOXIDE 23 MMOL/L (21-32); CHLORIDE 106 MMOL/L (98-107); CREATININE 8.9 MG/DL (0.55-1.30); PHOSPHORUS 5.7 MG/DL (2.5-4.9); POTASSIUM 5.2 MMOL/L (3.5-5.1); SODIUM 141 MMOL/L (136-145)
[2018-03-08 08:00] VITALS: BP 158/72
[2018-03-08] MEDS: Aspirin Baby 81mg ORAL SCH (08:24)
[2018-03-08] MEDS: Docusate 100mg cap ORAL SCH ×3 (08:24→17:04)
[2018-03-08] MEDS: Metoprolol 25mg tab ORAL SCH ×2 (08:24→21:33)
[2018-03-08] MEDS: Lisinopril 20mg tab ORAL SCH ×2 (08:25→17:05)
--- NOTE | 2018-03-08 08:58 | Pulmonology Progress Note ---
Assessment/Plan Assessment/Plan IMPRESSION: 1. Acute cerebrovascular accident. 2. Hypoglycemia. 3. End-stage renal disease, on dialysis. DISCUSSION: 1. Admit to the hospital. 2. Continue sliding scale. 3. Continue diet. 4. Continue home medications. 5. Avoid oral hypoglycemics. 6. Seen by Neurology for new CVA. Reviewed MRI brain. DC planning to SNF in AM Outpt HD Subjective Interval Events: No new events Constitutional: Reports: no symptoms HEENT: Repors: no symptoms Respiratory: Reports: no symptoms Cardiovascular: Reports: no symptoms Gastrointestinal/Abdominal: Reports: no symptoms Genitourinary: Reports: no symptoms Allergies: Coded Allergies: No Known Allergies (Verified , 06/09/11) Objective Last 24 Hour Vital Signs Date Time Temp Pulse Resp B/P (MAP) Pulse Ox O2 Delivery O2 Flow Rate FiO2 03/08/18 08:25 158/72 03/08/18 08:24 65 158/72 03/08/18 08:24 65 158/72 03/08/18 08:00 97.4 65 20 158/72 (100) 98 97.4 03/08/18 06:06 151/76 03/08/18 04:00 57 03/08/18 04:00 98.0 60 18 151/76 (101) 98 98.0 03/08/18 00:00 98.1 57 17 157/71 (99) 98 98.1 03/08/18 00:00 57 03/07/18 21:39 186/82 03/07/18 21:39 60 186/82 03/07/18 21:00 Room Air 03/07/18 20:00 60 03/07/18 20:00 97.3 60 20 186/82 (116) 100 97.3 03/07/18 17:01 58 168/79 03/07/18 17:01 168/79 03/07/18 16:00 58 03/07/18 15:39 98.2 60 18 168/79 (108) 98 98.2 03/07/18 13:09 174/93 03/07/18 12:00 57 03/07/18 12:00 97.9 61 19 174/93 (120) 98 97.9 03/07/18 09:00 Room Air Intake and Output 03/07/18 03/08/18 19:00 07:00 Intake Total 480 ml 200 ml Balance 480 ml 200 ml Intake Oral 480 ml 200 ml # Voids 3 3 # Bowel Movements 1 General Appearance: no acute distress HEENT: normocephalic Respiratory/Chest: chest wall non-tender, lungs clear Cardiovascular: normal peripheral pulses, normal rate Microbiology Date/Time Source Procedure Growth Status 03/05/18 20:35 Blood Blood Culture - Preliminary NO GROWTH AFTER 48 HOURS Resulted 03/05/18 20:20 Blood Blood Culture - Preliminary NO GROWTH AFTER 48 HOURS Resulted 03/05/18 21:00 Nasal Nares MRSA Culture - Final Staphylococcus Aureus - Mrsa Complete 03/05/18 21:00 Rectum VRE Culture - Final NO VANCOMYCIN RESISTANT ENTEROCOCCUS ... Complete 03/05/18 21:00 Rectum - Final NO CARBAPENEM-RESISTANT ENTEROBACTERI... Complete Laboratory Tests 03/07/18 10:30: C-Reactive Protein, Quantitative < 0.4 03/08/18 05:15: White Blood Count 6.0, Red Blood Count 4.68, Hemoglobin 13.2, Hematocrit 40.7, Mean Corpuscular Volume 87, Mean Corpuscular Hemoglobin 28.1, Mean Corpuscular Hemoglobin Concent 32.3, Red Cell Distribution Width 15.3H, Platelet Count 225, Mean Platelet Volume 5.9L, Neutrophils (%) (Auto) 46.9, Lymphocytes (%) (Auto) 36.5, Monocytes (%) (Auto) 9.8, Eosinophils (%) (Auto) 5.3H, Basophils (%) (Auto ) 1.4, Sodium Level 141, Potassium Level 5.2H, Chloride Level 106, Carbon Dioxide Level 23, Anion Gap 12, Blood Urea Nitrogen 59H, Creatinine 8.9H, Estimat Glomerular Filtration Rate , Glucose Level 113H, Calcium Level 10.2H, Phosphorus Level 5.7H, Magnesium Level 3.1H, Total Bilirubin 0.3, Aspartate Amino Transf (AST/SGOT) 26, Alanine Aminotransferase (ALT/SGPT) 23, Alkaline Phosphatase 66, Pro-B-Type Natriuretic Peptide 2968H, Total Protein 8.0, Albumin 3.3L, Globulin 4.7, Albumin/Globulin Ratio 0.7L Current Medications Medications (Trade) Dose Ordered Sig/Delta Route PRN Reason Start Time Stop Time Status Last Admin Dose Admin Aspirin (ASA) 162 mg DAILY ORAL 03/06/18 09:45 04/05/18 09:44 03/08/18 08:24 Chlorhexidine Gluconate (Alejandrina-Hex 2%) 1 applic DAILY@2000 TOPIC 03/07/18 20:00 04/06/18 19:59 03/07/18 20:46 Clopidogrel Bisulfate (Plavix) 75 mg DAILY ORAL 03/07/18 15:30 04/06/18 15:29 03/08/18 08:25 Dextrose (Dextrose 50%) 25 ml STAT PRN IV Hypoglycemia 03/05/18 23:15 04/04/18 23:14 Dextrose (Dextrose 50%) 50 ml STAT PRN IV Hypoglycemia 03/05/18 23:15 04/04/18 23:14 Docusate Sodium (Colace) 100 mg THREE TIMES A DAY ORAL 03/06/18 13:00 04/05/18 12:59 03/08/18 08:24 Hydralazine HCl (Apresoline) 25 mg Q4H PRN ORAL bp over 160 syst 03/06/18 00:00 04/05/18 00:00 03/06/18 18:38 Hydralazine HCl (Apresoline) 50 mg Q8HR ORAL 03/07/18 14:00 04/06/18 13:59 03/08/18 06:06 Insulin Aspart (NovoLOG) BEFORE MEALS AND HS SUBQ 03/06/18 06:30 04/05/18 06:29 03/07/18 16:15 Lisinopril (Prinivil) 40 mg BID ORAL 03/06/18 09:00 04/04/18 23:29 03/08/18 08:25 Metoprolol Tartrate (Lopressor) 25 mg EVERY 12 HOURS ORAL 03/06/18 21:00 04/04/18 08:59 03/08/18 08:24 Nifedipine (Procardia XL) 60 mg BID ORAL 03/06/18 09:00 04/05/18 08:59 03/08/18 08:24 Sevelamer Carbonate (Renvela) 800 mg THREE TIMES A DAY ORAL 03/06/18 13:00 04/05/18 12:59 03/08/18 08:24 Baljit Alfredo MD Mar 08, 2018 08:58
--- NOTE | 2018-03-08 10:14 | Nephrology Progress Note ---
Assessment/Plan Problem List: (1) ESRD (end stage renal disease) (2) Acute CVA (cerebrovascular accident) (3) Hypertensive kidney disease (4) Diabetes Assessment left brain stroke MRI: Positive for acute infarct of the left side of the medulla- Subtle but probable acute focal lacunar infarct of the right temporal lobe in the periventricular region Plan dialysed 03/06 next HD 03/09 BP med adjustment- increase hydralazine asa, plavix added per neuro PT OT Subjective ROS Limited/Unobtainable: No Constitutional: Reports: malaise Objective Objective Last 24 Hour Vital Signs Date Time Temp Pulse Resp B/P (MAP) Pulse Ox O2 Delivery O2 Flow Rate FiO2 03/08/18 09:00 Room Air 03/08/18 08:25 158/72 03/08/18 08:24 65 158/72 03/08/18 08:24 65 158/72 03/08/18 08:00 59 03/08/18 08:00 97.4 65 20 158/72 (100) 98 97.4 03/08/18 06:06 151/76 03/08/18 04:00 57 03/08/18 04:00 98.0 60 18 151/76 (101) 98 98.0 03/08/18 00:00 98.1 57 17 157/71 (99) 98 98.1 03/08/18 00:00 57 03/07/18 21:39 186/82 03/07/18 21:39 60 186/82 03/07/18 21:00 Room Air 03/07/18 20:00 60 03/07/18 20:00 97.3 60 20 186/82 (116) 100 97.3 03/07/18 17:01 58 168/79 03/07/18 17:01 168/79 03/07/18 16:00 58 03/07/18 15:39 98.2 60 18 168/79 (108) 98 98.2 03/07/18 13:09 174/93 03/07/18 12:00 57 03/07/18 12:00 97.9 61 19 174/93 (120) 98 97.9 Intake and Output 03/07/18 03/08/18 19:00 07:00 Intake Total 480 ml 200 ml Balance 480 ml 200 ml Intake Oral 480 ml 200 ml # Voids 3 3 # Bowel Movements 1 Laboratory Tests 03/07/18 10:30: C-Reactive Protein, Quantitative < 0.4 03/08/18 05:15: White Blood Count 6.0, Red Blood Count 4.68, Hemoglobin 13.2, Hematocrit 40.7, Mean Corpuscular Volume 87, Mean Corpuscular Hemoglobin 28.1, Mean Corpuscular Hemoglobin Concent 32.3, Red Cell Distribution Width 15.3H, Platelet Count 225, Mean Platelet Volume 5.9L, Neutrophils (%) (Auto) 46.9, Lymphocytes (%) (Auto) 36.5, Monocytes (%) (Auto) 9.8, Eosinophils (%) (Auto) 5.3H, Basophils (%) (Auto ) 1.4, Sodium Level 141, Potassium Level 5.2H, Chloride Level 106, Carbon Dioxide Level 23, Anion Gap 12, Blood Urea Nitrogen 59H, Creatinine 8.9H, Estimat Glomerular Filtration Rate , Glucose Level 113H, Calcium Level 10.2H, Phosphorus Level 5.7H, Magnesium Level 3.1H, Total Bilirubin 0.3, Aspartate Amino Transf (AST/SGOT) 26, Alanine Aminotransferase (ALT/SGPT) 23, Alkaline Phosphatase 66, Pro-B-Type Natriuretic Peptide 2968H, Total Protein 8.0, Albumin 3.3L, Globulin 4.7, Albumin/Globulin Ratio 0.7L Height (Feet): 5 Height (Inches): 2.00 Weight (Pounds): 134 General Appearance: no apparent distress Cardiovascular: normal rate Respiratory/Chest: lungs clear Abdomen: soft Neurologic: other - right weakness Zion Velez MD Mar 08, 2018 10:14
[2018-03-08 12:00] VITALS: BP 160/85
[2018-03-08 13:51] LABS: APPEARANCE,URINE CLEAR; BILIRUBIN, URINE NEGATIVE (NEGATIVE); COLOR,URINE PALE YELLOW; GLUCOSE, URINE (UA) 2+ (NEGATIVE); KETONES,URINE NEGATIVE (NEGATIVE); LEUKOCYTE ESTERASE ,URINE NEGATIVE (NEGATIVE); NITRITE,URINE NEGATIVE (NEGATIVE); PH,URINE 7 (4.5-8.0); PROTEIN,URINE 3+ (NEGATIVE); UROBILINOGEN,URINE NORMAL MG/DL (0.0-1.0)
[2018-03-08] MEDS ORDERED: HydrALAZINE 25mg tab ORAL SCH (14:00)
--- NOTE | 2018-03-08 14:04 | Cardiology Report ---
APPROVED REPORT EXAM: Two-dimensional and M-mode echocardiogram with Doppler and color Doppler. INDICATION Congestive Heart Failure M-Mode DIMENSIONS IVSd1.4 (0.7-1.1cm)Left Atrium (MM)3.3 (1.6-4.0cm) LVDd4.4 (3.5-5.6cm)Aortic Root3.5 (2.0-3.7cm) PWd1.5 (0.7-1.1cm)Aortic Cusp Exc.1.7 (1.5-2.0cm) LVDs2.8 (2.5-4.0cm) PWs1.8 cm Normal left ventricular chamber size, systolic function and wall motion. Left ventricular ejection fraction estimated to be 55 %. Moderate left ventricular hypertrophy. No evidence of pericardial effusion. All other cardiac chamber sizes are within normal limits. Mild focal aortic valve sclerosis with adequate cusp excursion. Mildly thickened mitral valve leaflets with normal excursion. Mild mitral annulus and aortic root calcification. Normal pulmonic valve structure. Normal tricuspid valve structure. IVC is normal in size with physiological collapse. A color flow and spectral Doppler study was performed and revealed: Mild aortic insufficiency. Mild mitral regurgitation. Mitral diastolic velocities suggest mild left ventricular diastolic dysfunction (Grade I). Mild to moderate tricuspid regurgitation. Tricuspid systolic velocities suggests peak right ventricular systolic pressure of 55 mmHg, consistent with moderate pulmonary hypertension. Moderate pulmonic regurgitation present.
--- NOTE | 2018-03-08 14:16 | Neurology Progress Note ---
Interim History Interim History Interim History Ms. Hardwick feels better today. The right hand feels a little stronger. The right leg also felt stronger when she walked today. She is in better spirits. She is worried about the future as she has no family in the [place]. The speech and language are normal. She denies any new neurologic symptoms. Review of Systems Neuro Review of Systems Benign. Objective Physical Exam Last Vital Signs Date Time Temp Pulse Resp B/P (MAP) Pulse Ox O2 Delivery O2 Flow Rate FiO2 03/08/18 13:22 160/85 03/08/18 12:00 59 03/08/18 12:00 97.3 19 99 97.3 03/08/18 09:00 Room Air Laboratory Tests Test 03/08/18 05:15 03/08/18 13:30 White Blood Count 6.0 K/UL (4.8-10.8) Red Blood Count 4.68 M/UL (4.20-5.40) Hemoglobin 13.2 G/DL (12.0-16.0) Hematocrit 40.7 % (37.0-47.0) Mean Corpuscular Volume 87 FL (80-99) Mean Corpuscular Hemoglobin 28.1 PG (27.0-31.0) Mean Corpuscular Hemoglobin Concent 32.3 G/DL (32.0-36.0) Red Cell Distribution Width 15.3 % (11.6-14.8) H Platelet Count 225 K/UL (150-450) Mean Platelet Volume 5.9 FL (6.5-10.1) L Neutrophils (%) (Auto) 46.9 % (45.0-75.0) Lymphocytes (%) (Auto) 36.5 % (20.0-45.0) Monocytes (%) (Auto) 9.8 % (1.0-10.0) Eosinophils (%) (Auto) 5.3 % (0.0-3.0) H Basophils (%) (Auto) 1.4 % (0.0-2.0) Sodium Level 141 MMOL/L (136-145) Potassium Level 5.2 MMOL/L (3.5-5.1) H Chloride Level 106 MMOL/L (98-107) Carbon Dioxide Level 23 MMOL/L (21-32) Anion Gap 12 mmol/L (5-15) Blood Urea Nitrogen 59 mg/dL (7-18) H Creatinine 8.9 MG/DL (0.55-1.30) H Estimat Glomerular Filtration Rate mL/min (>60) Glucose Level 113 MG/DL (74-106) H Calcium Level 10.2 MG/DL (8.5-10.1) H Phosphorus Level 5.7 MG/DL (2.5-4.9) H Magnesium Level 3.1 MG/DL (1.8-2.4) H Total Bilirubin 0.3 MG/DL (0.2-1.0) Aspartate Amino Transf (AST/SGOT) 26 U/L (15-37) Alanine Aminotransferase (ALT/SGPT) 23 U/L (12-78) Alkaline Phosphatase 66 U/L (46-116) Pro-B-Type Natriuretic Peptide 2968 pg/mL (0-125) H Total Protein 8.0 G/DL (6.4-8.2) Albumin 3.3 G/DL (3.4-5.0) L Globulin 4.7 g/dL Albumin/Globulin Ratio 0.7 (1.0-2.7) L Urine Color Pale yellow Urine Appearance Clear Urine pH 7 (4.5-8.0) Urine Specific [place] 1.005 (1.005-1.035) Urine Protein 3+ (NEGATIVE) H Urine Glucose (UA) 2+ (NEGATIVE) H Urine Ketones Negative (NEGATIVE) Urine Occult Blood 2+ (NEGATIVE) H Urine Nitrite Negative (NEGATIVE) Urine Bilirubin Negative (NEGATIVE) Urine Urobilinogen Normal MG/DL (0.0-1.0) Urine Leukocyte Esterase Negative (NEGATIVE) Urine RBC 2-4 /HPF (0 - 2) H Urine WBC 0-2 /HPF (0 - 2) Urine Squamous Epithelial Cells Occasional /LPF Urine Bacteria Occasional /HPF (NONE) Neurologic Exam Objective PHYSICAL EXAMINATION: GENERAL: She is a well-developed, well-nourished, pleasant black lady, lying in bed, in no acute distress. HEAD: Normocephalic and atraumatic. NECK: No neck rigidity was observed. EENT: Examination benign. NEUROLOGIC EXAMINATION: MENTAL STATUS EXAMINATION: She was awake and alert. She was oriented to person, place, and time. She was able to recall 3/3 words immediately, but could only remember 2/3 words in 1 minute and 3 minutes. She was able to remember presidents Trump through [employer] spontaneously, but needed hints to remember through [employer]. Her mathematical skills were impaired. Her visuospatial function was also impaired. SPEECH: She had a mild dysarthria for labial nature. LANGUAGE: She had anomia for low-frequency words. CRANIAL NERVE EXAMINATION: II: The visual marie were intact on confrontation testing. III, IV & : External ocular movements were full and the pupils 3 mm in diameter, equal, round, regular, and reactive to light. V: She had normal facial sensations and the temporales, masseters, and pterygoids functioned normally. VII: She had right VII central facial paresis. VIII: She was able to hear well and had no nystagmus. IX: The palate moved symmetrically on phonation. X: She had no hoarseness of voice. XI: The sternocleidomastoids and trapezii functioned normally. XII: The tongue was in the midline without any fasciculations or atrophy. MOTOR SYSTEM: The tone was normal in all four extremities. Examination of muscle mass revealed no focal wasting. Examination of power revealed G 5/5 power except for G 3/5 power in the right finger extensors, G 4/5 power in the right finger flexors, G 4+/5 power in the right deltoid, G 4/5 power in the right iliopsoas, and G 4+/5 power in the right toe extensors, and ankle dorsiflexors. SENSORY EXAMINATION: She had intact sensations to pinprick, light touch, and graphesthesia. COORDINATION: She performed well on [id number] and pati-uy-[id number] testing, but the movements on the right side were performed in a slow fashion. REFLEXES: 1+ on the right and trace + on the left at the biceps, triceps, brachioradialis, and knees. 0 at both ankles. The plantar responses were flexor bilaterally. STANCE: She stood up with support on the left side. GAIT: She walked with support on the left side with a mildly right paretic gait. Impression/Recommendations Diagnostic Impression 1. Ms July Hardwick is a 77-year-old, right-handed, black lady, who does have a past history of hypertension, diabetes mellitus, and end-stage renal disease for which she is hemodialysis dependent, who on awakening on 03/05/2018 noted that the right hand was weak and numb. Later on when she tried to walk, she also noticed that her right leg was weak. 2. She feels better today. The right hand feels a little stronger. The right leg also felt stronger when she walked today. She is in better spirits. She is worried about the future as she has no family in the [place]. The speech and language are normal. She denies any new neurologic symptoms. 3. On neurological examination, at this time, she does have problems with recent and remote memory, visuospatial function, higher cognitive function, and language. She also has a right VII central facial paresis, right hemiparesis involving the upper and lower extremities is better. She does have brisker right deep tendon reflexes, but the reflexes are globally diminished bilaterally. She has a mildly right paretic gait. 4. Laboratory data obtained thus far have revealed that her BUN is elevated to 46, her creatinine is elevated to 7.7, her blood glucose is elevated to 173, and hemoglobin A1c is elevated to 6.1%. Her proBNP is elevated to 2264. Her albumin is down at 3.2. Her total cholesterol is 139 with an LDL of 60 and HDL of 85. Her vitamin B12 level is normal at 848. Her folate is normal at 23.8 and a TSH is normal at 1.06. Her CBC reveals that she is anemic with a hemoglobin of 11.8 G. 5. The MRI of the brain revealed a high left medullary infarct and a questionable small area of infarct in the right temporal deep white matter. 6. The CVNIP revealed 20% right and 30% left ICA stenosis. 7. 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 8. The most likely etiology for the patient's stroke would be hypertensive diabetic small-vessel disease. Recommendations 1. Continue present management. 2. Await results of RPR. 3. Plavix 75 mg daily for secondary stroke prevention. 4. The patient's blood pressure should be brought down into physiological range , that equal to or less than 120/80. 5. The patient's blood sugars should be controlled well. 6. Physical, occupational and speech and language therapy to rehabilitate her. Mulugeta Long M.D., M.S.[facility]. MULUGETA LONG Mar 08, 2018 14:15
--- NOTE | 2018-03-08 14:26 | Cardiology Report ---
APPROVED REPORT EKG Measurement Heart [id number] [place] [id number] Sinus bradycardia Left axis deviation Right bundle branch block Abnormal ECG
[2018-03-08 16:00] VITALS: BP 174/94
[2018-03-08 20:00] VITALS: BP 152/75
[2018-03-08] MEDS: Dyna-Hex 2% Top Sol 2oz TOPIC SCH (20:31)
[2018-03-09] VITALS: BP 164/66
[2018-03-09 04:00] VITALS: BP 148/73
[2018-03-09] MEDS: HydrALAZINE 50mg tab ORAL SCH ×2 (06:12→13:47)
[2018-03-09] MEDS: NovoLOG Insulin Flexpen SUBQ SCH ×3 (06:15→16:46)
[2018-03-09 08:00] VITALS: BP 142/74
[2018-03-09] MEDS: Docusate 100mg cap ORAL SCH ×3 (08:44→17:49)
[2018-03-09] MEDS: Aspirin Baby 81mg ORAL SCH (08:45)
[2018-03-09] MEDS: Lisinopril 20mg tab ORAL SCH ×2 (08:45→17:48)
[2018-03-09] MEDS: Metoprolol 25mg tab ORAL SCH (08:46)
[2018-03-09] MEDS ORDERED: Doxazosin 1mg Tab ORAL SCH ×2 (09:00→14:00)
[2018-03-09] MEDS ORDERED: LOPRESSOR25 M1 ORAL (09:14)
[2018-03-09] MEDS ORDERED: APRESOLINE50 MG ORAL (09:14)
[2018-03-09] MEDS ORDERED: RENVELA800 MG ORAL (09:14)
[2018-03-09] MEDS ORDERED: ASPIRIN81 MG ORAL (09:14)
[2018-03-09] MEDS ORDERED: PLAVIX75 MG ORAL (09:14)
[2018-03-09] MEDS ORDERED: DOXAZOSIN MESYLA1 MG ORAL (09:14)
[2018-03-09] MEDS ORDERED: PROCARDIA XL30 MG ORAL (09:14)
[2018-03-09] MEDS ORDERED: LIPITOR40 MG ORAL (09:16)
--- NOTE | 2018-03-09 09:18 | Pulmonology Progress Note ---
Assessment/Plan Assessment/Plan IMPRESSION: 1. Acute cerebrovascular accident. 2. Hypoglycemia. Resolved. 3. End-stage renal disease, on dialysis. DISCUSSION: 1. DC to SNF 2. Continue sliding scale. 3. Continue diet. 4. Continue home medications. 5. Avoid oral hypoglycemics. 6. Seen by Neurology for new CVA. Reviewed MRI brain. Added ASA and Plavix as well as Lipitor DC planning to SNF today with HD Subjective Interval Events: No new problems Constitutional: Reports: no symptoms HEENT: Repors: no symptoms Respiratory: Reports: no symptoms Cardiovascular: Reports: no symptoms Gastrointestinal/Abdominal: Reports: no symptoms Genitourinary: Reports: no symptoms Neurologic: Reports: no symptoms Allergies: Coded Allergies: No Known Allergies (Verified , 06/09/11) Objective Last 24 Hour Vital Signs Date Time Temp Pulse Resp B/P (MAP) Pulse Ox O2 Delivery O2 Flow Rate FiO2 03/09/18 08:46 57 142/74 03/09/18 08:45 142/74 03/09/18 08:44 57 142/74 03/09/18 08:00 97.3 57 18 142/74 (96) 100 97.3 03/09/18 06:12 148/73 03/09/18 04:00 60 03/09/18 04:00 97.3 56 20 148/73 (98) 99 97.3 03/09/18 00:00 97.0 66 20 164/66 (98) 99 97.0 03/09/18 00:00 68 03/08/18 21:33 152/75 03/08/18 21:33 60 152/75 03/08/18 21:00 Room Air 03/08/18 20:00 60 03/08/18 20:00 97.3 62 20 152/75 (100) 99 97.3 03/08/18 17:05 64 174/94 03/08/18 17:05 174/94 03/08/18 16:00 97.3 73 20 174/94 (120) 100 97.3 03/08/18 16:00 64 03/08/18 13:22 160/85 03/08/18 12:00 59 03/08/18 12:00 97.3 62 19 160/85 (110) 99 97.3 Intake and Output 03/08/18 03/09/18 19:00 07:00 Intake Total 200 ml 120 ml Output Total 100 ml 800 ml Balance 100 ml -680 ml Intake Oral 200 ml 120 ml Output Urine Total 100 ml 800 ml # Voids 4 General Appearance: no acute distress HEENT: normocephalic Respiratory/Chest: chest wall non-tender, lungs clear Cardiovascular: normal peripheral pulses, normal rate Abdomen: normal bowel sounds Extremities: no cyanosis Microbiology Date/Time Source Procedure Growth Status 03/08/18 13:30 Urine,Clean Catch Urine Culture - Preliminary Resulted Laboratory Tests 03/08/18 13:30: Urine Color Pale yellow, Urine Appearance Clear, Urine pH 7, Urine Specific [place] 1.005, Urine Protein 3+H, Urine Glucose (UA) 2+H, Urine Ketones Negative , Urine Occult Blood 2+H, Urine Nitrite Negative, Urine Bilirubin Negative, Urine Urobilinogen Normal, Urine Leukocyte Esterase Negative, Urine RBC 2-4H, Urine WBC 0-2, Urine Squamous Epithelial Cells Occasional, Urine Bacteria Occasional Current Medications Medications (Trade) Dose Ordered Sig/Delta Route PRN Reason Start Time Stop Time Status Last Admin Dose Admin Aspirin (ASA) 162 mg DAILY ORAL 03/06/18 09:45 04/05/18 09:44 03/09/18 08:45 Chlorhexidine Gluconate (Alejandrina-Hex 2%) 1 applic DAILY@1999 TOPIC 03/07/18 20:00 04/06/18 19:59 03/08/18 20:31 Clopidogrel Bisulfate (Plavix) 75 mg DAILY ORAL 03/07/18 15:30 04/06/18 15:29 03/09/18 08:44 Dextrose (Dextrose 50%) 25 ml STAT PRN IV Hypoglycemia 03/05/18 23:15 04/04/18 23:14 Dextrose (Dextrose 50%) 50 ml STAT PRN IV Hypoglycemia 03/05/18 23:15 04/04/18 23:14 Docusate Sodium (Colace) 100 mg THREE TIMES A DAY ORAL 03/06/18 13:00 04/05/18 12:59 03/09/18 08:44 Doxazosin Mesylate (Cardura) 1 mg BID ORAL 03/09/18 09:00 04/08/18 08:59 03/09/18 09:14 Hydralazine HCl (Apresoline) 25 mg Q4H PRN ORAL bp over 160 syst 03/06/18 00:00 9/2/18 00:00 03/06/18 18:38 Hydralazine HCl (Apresoline) 100 mg Q8HR ORAL 03/08/18 14:00 04/06/18 13:59 03/09/18 06:12 Insulin Aspart (NovoLOG) BEFORE MEALS AND HS SUBQ 03/06/18 06:30 04/05/18 06:29 03/08/18 16:20 Lisinopril (Prinivil) 40 mg BID ORAL 03/06/18 09:00 04/04/18 23:29 03/09/18 08:45 Metoprolol Tartrate (Lopressor) 25 mg EVERY 12 HOURS ORAL 03/06/18 21:00 04/04/18 08:59 03/08/18 21:33 Mupirocin (Bactroban Oint) 1 applic THREE TIMES A DAY TOPIC 03/09/18 10:00 03/14/18 09:59 Nifedipine (Procardia XL) 60 mg BID ORAL 03/06/18 09:00 04/05/18 08:59 03/09/18 08:44 Sevelamer Carbonate (Renvela) 1,600 mg THREE TIMES A DAY ORAL 03/08/18 13:00 04/05/18 12:59 03/09/18 08:45 Baljit Alfredo MD Mar 09, 2018 09:18
[2018-03-09 12:00] VITALS: BP 170/86
--- NOTE | 2018-03-09 12:15 | Nephrology Progress Note ---
Assessment/Plan Problem List: (1) ESRD (end stage renal disease) (2) Acute CVA (cerebrovascular accident) (3) Hypertensive kidney disease (4) Diabetes Assessment left brain stroke MRI: Positive for acute infarct of the left side of the medulla- Subtle but probable acute focal lacunar infarct of the right temporal lobe in the periventricular region Plan dialysed 03/06 next HD 03/09 today BP med adjustment- increase hydralazine- add cardura asa, plavix added per neuro PT OT Subjective ROS Limited/Unobtainable: No Constitutional: Reports: malaise, other - right hand weakness improving Objective Objective Last 24 Hour Vital Signs Date Time Temp Pulse Resp B/P (MAP) Pulse Ox O2 Delivery O2 Flow Rate FiO2 03/09/18 09:00 Room Air 03/09/18 08:46 57 142/74 03/09/18 08:45 142/74 03/09/18 08:44 57 142/74 03/09/18 08:00 59 03/09/18 08:00 97.3 57 18 142/74 (96) 100 97.3 03/09/18 06:12 148/73 03/09/18 04:00 60 03/09/18 04:00 97.3 56 20 148/73 (98) 99 97.3 03/09/18 00:00 97.0 66 20 164/66 (98) 99 97.0 03/09/18 00:00 68 03/08/18 21:33 152/75 03/08/18 21:33 60 152/75 03/08/18 21:00 Room Air 03/08/18 20:00 60 03/08/18 20:00 97.3 62 20 152/75 (100) 99 97.3 03/08/18 17:05 64 174/94 03/08/18 17:05 174/94 03/08/18 16:00 97.3 73 20 174/94 (120) 100 97.3 03/08/18 16:00 64 03/08/18 13:22 160/85 Intake and Output 03/08/18 03/09/18 19:00 07:00 Intake Total 200 ml 120 ml Output Total 100 ml 800 ml Balance 100 ml -680 ml Intake Oral 200 ml 120 ml Output Urine Total 100 ml 800 ml # Voids 4 Laboratory Tests 03/08/18 13:30: Urine Color Pale yellow, Urine Appearance Clear, Urine pH 7, Urine Specific [place] 1.005, Urine Protein 3+H, Urine Glucose (UA) 2+H, Urine Ketones Negative , Urine Occult Blood 2+H, Urine Nitrite Negative, Urine Bilirubin Negative, Urine Urobilinogen Normal, Urine Leukocyte Esterase Negative, Urine RBC 2-4H, Urine WBC 0-2, Urine Squamous Epithelial Cells Occasional, Urine Bacteria Occasional Height (Feet): 5 Height (Inches): 2.00 Weight (Pounds): 129 General Appearance: no apparent distress Cardiovascular: regular rhythm Respiratory/Chest: lungs clear Abdomen: soft Neurologic: other - weak right hand improving Zion Velez MD Mar 09, 2018 12:15
[2018-03-09 16:00] VITALS: BP 190/95
[2018-03-09 18:38] VITALS: BP 196/97
[2018-03-09] MEDS: HydrALAZINE 25mg tab ORAL PRN (18:38)
--- NOTE | 2018-03-09 19:24 | Neurology Progress Note ---
Interim History Interim History Interim History Ms. Hardwick feels better today. The right hand and leg feel stronger. She walked well today with the therapist. She is in better spirits. Plans are to go for rehab today. The speech and language are normal. She denies any new neurologic symptoms. Review of Systems Neuro Review of Systems Benign. Objective Physical Exam Last Vital Signs Date Time Temp Pulse Resp B/P (MAP) Pulse Ox O2 Delivery O2 Flow Rate FiO2 03/09/18 18:38 196/97 03/09/18 17:48 66 03/09/18 16:43 Room Air 03/09/18 16:00 97.2 18 99 97.2 Neurologic Exam Objective PHYSICAL EXAMINATION: GENERAL: She is a well-developed, well-nourished, pleasant black lady, lying in bed, in no acute distress. HEAD: Normocephalic and atraumatic. NECK: No neck rigidity was observed. EENT: Examination benign. NEUROLOGIC EXAMINATION: MENTAL STATUS EXAMINATION: She was awake and alert. She was oriented to person, place, and time. She was able to recall 3/3 words immediately, and in 1 and 3 minutes. She was able to remember presidents Trump through [employer] spontaneously, but needed hints to remember through [employer]. Her mathematical skills were impaired. Her visuospatial function was also impaired. SPEECH: She had a mild dysarthria for labial nature. LANGUAGE: She had anomia for low-frequency words. CRANIAL NERVE EXAMINATION: II: The visual marie were intact on confrontation testing. III, IV & : External ocular movements were full and the pupils 3 mm in diameter, equal, round, regular, and reactive to light. V: She had normal facial sensations and the temporales, masseters, and pterygoids functioned normally. VII: She had right VII central facial paresis. VIII: She was able to hear well and had no nystagmus. IX: The palate moved symmetrically on phonation. X: She had no hoarseness of voice. XI: The sternocleidomastoids and trapezii functioned normally. XII: The tongue was in the midline without any fasciculations or atrophy. MOTOR SYSTEM: The tone was normal in all four extremities. Examination of muscle mass revealed no focal wasting. Examination of power revealed G 5/5 power except for G 3/5 power in the right finger extensors, G 4/5 power in the right finger flexors, G 4+/5 power in the right deltoid, G 4+/5 power in the right iliopsoas, and G 4++/5 power in the right toe extensors, and ankle dorsiflexors. SENSORY EXAMINATION: She had intact sensations to pinprick, light touch, and graphesthesia. COORDINATION: She performed well on gjsieb-la-ceyw and pqks-tl-[id number] testing, but the movements on the right side were performed in a slow fashion. REFLEXES: 1+ on the right and trace + on the left at the biceps, triceps, brachioradialis, and knees. 0 at both ankles. The plantar responses were flexor bilaterally. STANCE: She stood up with support on the left side. GAIT: She walked with support on the left side with a mildly right paretic gait. Impression/Recommendations Diagnostic Impression 1. Ms July Hardwick is a 77-year-old, right-handed, black lady, who does have a past history of hypertension, diabetes mellitus, and end-stage renal disease for which she is hemodialysis dependent, who on awakening on 03/05/2018 noted that the right hand was weak and numb. Later on when she tried to walk, she also noticed that her right leg was weak. 2. She feels better today. The right hand and leg feel stronger. She walked well today with the therapist. She is in better spirits. Plans are to go for rehab today. The speech and language are normal. She denies any new neurologic symptoms. 3. On neurological examination, at this time, she does have problems with recent and remote memory, visuospatial function, higher cognitive function, and language. She also has a right VII central facial paresis. Her right hemiparesis involving the upper and lower extremities is better. She does have brisker right deep tendon reflexes, but the reflexes are globally diminished bilaterally. She has a mildly right paretic gait. 4. Laboratory data obtained thus far have revealed that her BUN is elevated to 46, her creatinine is elevated to 7.7, her blood glucose is elevated to 173, and hemoglobin A1c is elevated to 6.1%. Her proBNP is elevated to 2264. Her albumin is down at 3.2. Her total cholesterol is 139 with an LDL of 60 and HDL of 85. Her vitamin B12 level is normal at 848. Her folate is normal at 23.8 and a TSH is normal at 1.06. Her CBC reveals that she is anemic with a hemoglobin of 11.8 G. 5. The MRI of the brain revealed a high left medullary infarct and a questionable small area of infarct in the right temporal deep white matter. 6. The CVNIP revealed 20% right and 30% left ICA stenosis. 7. 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 8. The most likely etiology for the patient's stroke would be hypertensive diabetic small-vessel disease. 9. Her blood pressures are still running high. Recommendations 1. Continue present management. 2. Plavix 75 mg daily for secondary stroke prevention. 3. The patient's blood pressure should be brought down into physiological range , that equal to or less than 120/80. 4. The patient's blood sugars should be controlled well. 5. Physical, occupational and speech and language therapy to rehabilitate her. Mulugeta Velarde M.D., M.S.P.Denisa. MULUGETA VELARDE Mar 09, 2018 19:24
--- NOTE | 2018-03-11 09:01 | Discharge Summary ---
Discharge Summary Discharge Summary _ DATE OF ADMISSION: 03/05/2018 DATE OF DISCHARGE: 03/09/2018 REASON FOR ADMISSION: 77 years old female with past medical history of end-stage renal disease, on hemodialysis, diabetes mellitus, hypertension, was brought by paramedics due to altered mental status. Patient was noted to be hypoglycemic. Patient had previous episodes of hypoglycemia as well. Patient reported week right upper extremity that started for the last 24-48 hours. Vital signs reveal elevated blood pressure 192/87. Laboratory workup revealed no leukocytosis ,stable hemoglobin and hematocrit. Glucose was stable at that time BUN 41 creatinine 7.6, consistent with known history of end-stage renal disease . t\ Troponin was negative. EKG revealed normal sinus rhythm with right bundle branch block . Lactic acid 1.0 . Albumin 2.2. Patient admitted with diagnoses to rule out CVA ,hypoglycemia, end-stage renal disease on hemodialysis CONSULTANTS: neurologist Dr. Velarde composition instructor Dr. Velez [facility]: Patient admitted to telemetry floor. MRI of the brain was ordered to rule out acute CVA Neurology consult was requested. MRI of the brain revealed acute infarct of the left side of the medulla.. Subtle but probably acute focal lacunar infarct of the right temporal lobe in the periventricular region. Negative for acute intracranial bleeding or mass effect. Carotid Duplex was essentially unremarkable. Per neurology , etiology of CVA was hypertensive diabetic small vessel disease. Patient was started on Plavix and Aspirin along with statin. Blood pressure was not controlled . Grease Packer optimized antihypertensive medication regimen consisting of multiply antihypertensive medications, including calcium channel yamileth,beta yamileth, MARIA C inhibitor, hydralazine. Dose of hydralazine was increased and Cardura was added to existing antihypertensive regimen. Echocardiogram revealed preserved ejection fraction of 55% with normal left ventricular chamber size, systolic function and wall motion. Moderate left ventricular hypertrophy. [id number]-[id number] tricuspid regurgitation. Right ventricular systolic pressure of 55 consistent with moderate pulmonary hypertension Initial hypoglycemia resolved. Oral hypoglycemics were avoided . Blood sugar was managed on as needed basis with sliding scale of insulin. Hemoglobin A1c 6.1. Patient was working with physical and occupational therapists. Fall precaution maintained. Patient declined difficulty swallowing with speech therapist, and declined bedside swallow evaluation. at that time. Diet was downgraded as per speech therapist recommendations. Speech therapist recommended to follow up with bedside swallow valuation at the [facility]. Supplemental oxygen provided as needed to keep pulse oximetry above 92% . Pulmonary toilet was on standby as needed . Supportive care provided. Bowel regimen instituted. Patient was stable for discharge to [facility] for continuation of care. FINAL DIAGNOSES: Acute left medullary stroke Hypertensive kidney disease Hypoglycemia, resolved Diabetes mellitus End-stage renal disease ,on hemodialysis DISCHARGE MEDICATIONS: See Medication Reconciliation list. DISCHARGE INSTRUCTIONS: Patient discharged to [facility]. Follow up with medical doctor at the facility. I have been assigned to dictate discharge summary for this account. I was not involved in the patient's management. Jessica Goldsmith NP Mar 11, 2018 09:01
== END 2018-03-09 23:35 | DRG 64 ==
LOC: EDBD 19:53 → EMR 20:15 → EDBEDREQ 20:37 → 2E 21:20 → EDBEDREQ 21:29
PROC: 5A1D70Z Performance of Urinary Filtration, Intermittent, Less than 6 Hours Per Day (ICD-10-PCS; principal; 2018-03-06)
PROC: 5A1D70Z Performance of Urinary Filtration, Intermittent, Less than 6 Hours Per Day (ICD-10-PCS; 2018-03-09)
DX: I63.8 Other cerebral infarction (principal); N18.6 End stage renal disease; I12.0 Hypertensive chronic kidney disease with stage 5 chronic kidney disease or end stage renal disease; G81.91 Hemiplegia, unspecified affecting right dominant side; Z99.2 Dependence on renal dialysis; E11.22 Type 2 diabetes mellitus with diabetic chronic kidney disease; Z79.4 Long term (current) use of insulin; E11.649 Type 2 diabetes mellitus with hypoglycemia without coma; I27.20 Pulmonary hypertension, unspecified; I36.1 Nonrheumatic tricuspid (valve) insufficiency; I45.10 Unspecified right bundle-branch block
CPT/HCPCS: 36415; 70551; 71045; 80053; 80061; 81001; 82607; 82746; 82962; 83036; 83605; 83735; 83880; 84100; 84443; 84484; 84550; 85025; 85651; 86140; 86592; 86850; 86900; 86901; 87040; 87081; 87086; 87181; 93005; 93306; 93880; J1815

== ENCOUNTER 2018-09-11 10:50 | Emergency (ER) | payer BC, OTHER ==
[~2018-09-11] VITALS: Ht 157.5 cm; Wt 49.9 kg
[~2018-09-11 10:50] MED LIST: ADALAT10 MG ORAL; AMLODIPINE BES2.5 MG ORAL; AMLODIPINE BESY10 MG ORAL; APRESOLINE50 MG ORAL; ASPIRIN81 MG ORAL; BETIMOL5 M2 LEFT EYE; CATAPRES-TTS 21 EACH TDERMAL; DOXAZOSIN MESYLA1 MG ORAL; HUMIRA40 MG/0.2 SUBQ; LIPITOR40 MG ORAL; LISINOPRIL40 MG ORAL; LISINOPRIL5 MG ORAL; LOPRESSOR25 M1 ORAL; LOPRESSOR5 MG/5 ML IV; METOPROLOL SUCC25 MG ORAL; METOPROLOL TART50 M1 ORAL; MULTIVITAMINS1 EAC2 ORAL; NIFEDIPINE ER60 M2 ORAL; PLAVIX75 MG ORAL; PROCARDIA XL30 MG ORAL; RENVELA800 MG ORAL
[2018-09-11] MEDS ORDERED: UNOBMED (10:59)
[2018-09-11 11:03] VITALS: BP 162/144
[2018-09-11] MEDS ORDERED: Surgicel 4in x 8in TOPIC ONE (11:30)
[2018-09-11 11:50] LABS: BASOPHILS % (AUTO) 1.4 % (0.0-2.0); EOSINOPHILS % (AUTO) 6.8 % (0.0-3.0); HEMATOCRIT 36.9 % (37.0-47.0); HEMOGLOBIN 11.7 G/DL (12.0-16.0); MEAN CORPUSCULAR VOLUME 91 FL (80-99); MONOCYTES % (AUTO) 9.8 % (1.0-10.0); NEUTROPHILS % (AUTO) 51.1 % (45.0-75.0); PLATELET COUNT 175 K/UL (150-450); RED BLOOD COUNT 4.03 M/UL (4.20-5.40); RED CELL DISTRIBUTION WIDTH 16.4 % (11.6-14.8); WHITE BLOOD COUNT 5.2 K/UL (4.8-10.8)
[2018-09-11 12:02] LABS: ANION GAP 10 mmol/L (5-15); BLOOD UREA NITROGEN 26 mg/dL (7-18); CARBON DIOXIDE 29 MMOL/L (21-32); CHLORIDE 100 MMOL/L (98-107); CREATININE 4.6 MG/DL (0.55-1.30); POTASSIUM 3.8 MMOL/L (3.5-5.1); SODIUM 139 MMOL/L (136-145)
[2018-09-11 12:07] LABS: ALANINE AMINOTRANSFERASE 28 U/L (12-78); ALBUMIN 3.7 G/DL (3.4-5.0); ALBUMIN/GLOBULIN RATIO 0.8 (1.0-2.7); ALKALINE PHOSPHATASE 69 U/L (46-116); ASPARTATE AMINO TRANSFERASE 40 U/L (15-37); BILIRUBIN,TOTAL 0.6 MG/DL (0.2-1.0)
--- NOTE | 2018-09-11 12:55 | Emergency Room Report ---
History of Present Illness General Chief Complaint: General Complaint Source: Patient, Medical Record, EMS Present Illness HPI Patient is age overdose with this. Patient has a history of renal failure and is currently on dialysis. Patient has a left upper arm AV fistula. Patient had dialysis today. About one hour after dialysis she noticed a large amount of bleeding coming from her AV fistula. She was transported here further evaluation. Patient complains of some weakness a large amount of blood loss. She denies any fever chest pain shortness of breath. Denies any leg pain leg swelling. Denies any syncope palpitations or chest pain. Symptoms are however noted to be highly severe. No other modifying factors. No other associated signs and symptoms. No other complaints were noted. Allergies: Coded Allergies: No Known Allergies (Verified , 06/09/11) Patient History Past Medical History: DM, HTN, CAD, renal disease, dialysis PSxH Narrative left upper extremity AV fistula Social History: Denies: smoking, alcohol use, drug use Reviewed Nursing Documentation: PMH: Agreed; PSxH: Agreed Nursing Documentation-PMH Past Medical History: No History, Except For Hx Cardiac Problems: Yes Hx Hypertension: Yes Hx Diabetes: Yes Hx Cancer: No Hx Gastrointestinal Problems: No Hx Dialysis: Yes - MWF Hx Neurological Problems: No Review of Systems All Other Systems: negative except mentioned in HPI Physical Exam Vital Signs Date Time Temp Pulse Resp B/P (MAP) Pulse Ox O2 Delivery O2 Flow Rate FiO2 09/11/18 10:50 97.7 93 20 162/144 100 Room Air Sp02 EP Interpretation: reviewed, normal General Appearance: alert, mild distress, thin Head: atraumatic Eyes: bilateral eye normal inspection ENT: normal ENT inspection, hearing grossly normal, normal voice Neck: normal inspection, full range of motion, supple, no bony tend Respiratory: normal inspection, lungs clear, normal breath sounds, no respiratory distress, no retraction, no wheezing Cardiovascular #1: regular rate, rhythm, no edema Gastrointestinal: normal inspection, normal bowel sounds, non tender, soft, no guarding, no hernia Genitourinary: no CVA tenderness Musculoskeletal: normal range of motion, other - Left av fistula, pulstile bleeding Neurologic: normal inspection, alert, responsive, speech normal Psychiatric: normal inspection, judgement/insight normal, mood/affect normal Skin: normal inspection, normal color, no rash Procedures Critical Care Time Critical Care Time Patient had a critical medical condition which untreated could potentially result in life or limb threatening injury. Total critical care time excluding procedures was approximately 45 minutes. Medical Decision Making Diagnostic Impression: Primary Impression: Hemodialysis access site with mature fistula Additional Impression: A-V fistula ER Course Patient presents emergency department today with left AV fistula bleeding. Differential considerations include life-threatening bleeding, AV fistula in erosion, abrasion just name a few. Given patient's large amount of bleeding was very concerned. This is disputed critical patient because a large amount of bleeding. Pressure was immediately applied to the burn bleeding site. Alon bandage was applied to patient's wound. Alon bandage was left on or proximal one hour. Bleeding appeared to slow down. However when I undid the dressing there appeared be for the bleeding. Therefore Alon bandage was reapplied.Case was discussed with Dr. Clark. He will evaluate the patient for possible repair in the emergency department at [facility]. I also discussed the case with vascular surgeon Dr. Rodriguez. Dr. Rodriguez is not on staff at [facility]. And felt that the patient should have a repair in the emergency Department here. He offered to see the patient if I would discharge patient is in the patient to his office but I felt uncomfortable doing so given that patient could rebleed. If Dr. Clark is unable to repair AV fistula that will attempt to transfer for higher level of care.If the repair to be successful then we'll discharge patient to follow-up with Dr. Rodriguez as an outpatient. Labs Test 09/11/18 11:15 White Blood Count 5.2 K/UL (4.8-10.8) Red Blood Count 4.03 M/UL (4.20-5.40) Hemoglobin 11.7 G/DL (12.0-16.0) Hematocrit 36.9 % (37.0-47.0) Mean Corpuscular Volume 91 FL (80-99) Mean Corpuscular Hemoglobin 29.0 PG (27.0-31.0) Mean Corpuscular Hemoglobin Concent 31.7 G/DL (32.0-36.0) Red Cell Distribution Width 16.4 % (11.6-14.8) Platelet Count 175 K/UL (150-450) Mean Platelet Volume 5.5 FL (6.5-10.1) Neutrophils (%) (Auto) 51.1 % (45.0-75.0) Lymphocytes (%) (Auto) 31.0 % (20.0-45.0) Monocytes (%) (Auto) 9.8 % (1.0-10.0) Eosinophils (%) (Auto) 6.8 % (0.0-3.0) Basophils (%) (Auto) 1.4 % (0.0-2.0) Prothrombin Time 10.6 SEC (9.30-11.50) Prothromb Time International Ratio 1.0 (0.9-1.1) Activated Partial Thromboplast Time 25 SEC (23-33) Sodium Level 139 MMOL/L (136-145) Potassium Level 3.8 MMOL/L (3.5-5.1) Chloride Level 100 MMOL/L (98-107) Carbon Dioxide Level 29 MMOL/L (21-32) Anion Gap 10 mmol/L (5-15) Blood Urea Nitrogen 26 mg/dL (7-18) Creatinine 4.6 MG/DL (0.55-1.30) Estimat Glomerular Filtration Rate mL/min (>60) Glucose Level 140 MG/DL (74-106) Calcium Level 10.0 MG/DL (8.5-10.1) Total Bilirubin 0.6 MG/DL (0.2-1.0) Aspartate Amino Transf (AST/SGOT) 40 U/L (15-37) Alanine Aminotransferase (ALT/SGPT) 28 U/L (12-78) Alkaline Phosphatase 69 U/L (46-116) Total Protein 8.1 G/DL (6.4-8.2) Albumin 3.7 G/DL (3.4-5.0) Globulin 4.4 g/dL Albumin/Globulin Ratio 0.8 (1.0-2.7) Last Vital Signs Date Time Temp Pulse Resp B/P (MAP) Pulse Ox O2 Delivery O2 Flow Rate FiO2 09/11/18 11:03 97.7 93 18 162/144 100 Room Air Status: improved Disposition: HOME, SELF-CARE Condition: Stable Referrals: AMOR,REFERRING (PCP) Abe Harry MD Sep 11, 2018 12:55
[2018-09-11 13:04] VITALS: BP 182/76
[2018-09-11 15:30] VITALS: BP 165/85
--- NOTE | 2018-09-11 17:38 | Consultation ---
History of Present Illness General Date patient seen: Sep 11, 2018 Reason for Hospitalization: General Complaint Present Illness HPI 78F with multiple medical comorbidities presented to ED today after receiving dialysis and noted persistent pulsatile bleeding from fistula. Had HD in the AM. went home. noted blood all over herself and came to ED. pressure dressing applied and surgery called to evaluate. patient seen, chart reviewed, patient examined. Allergies: Coded Allergies: No Known Allergies (Verified , 06/09/11) Medication History Scheduled Aspirin* (Aspirin*), 162 MG ORAL DAILY Atorvastatin Calcium* (Lipitor*), 40 MG ORAL BEDTIME Clopidogrel Bisulfate* (Plavix*), 75 MG ORAL DAILY Doxazosin Mesylate* (Doxazosin Mesylate*), 1 MG ORAL BID Hydralazine HCl (Hydralazine HCl), 100 MG ORAL Q8HR Lisinopril* (Lisinopril*), 40 MG ORAL BID, (Reported) Metoprolol Tartrate (Metoprolol Tartrate), 25 MG ORAL EVERY 12 HOURS Multivitamins* (Multivitamins*), 1 TAB ORAL DAILY, (Reported) Nifedipine Xl* (Procardia Xl*), 60 MG ORAL BID Sevelamer Carbonate (Renvela), 1,600 MG ORAL THREE TIMES A DAY Timolol (Betimol), 1 DRP LEFT EYE TWICE A DAY, (Reported) Miscellaneous Medications Unable to Obtain Medications (Unable To Obtain Meds), (Reported) Patient History History Provided By: Patient, Medical Record, PMD Healthcare decision maker Resuscitation status Advanced Directive on File Past Medical/Surgical History Past Medical/Surgical History: (1) Hypoglycemia (2) ESRD (end stage renal disease) (3) Acute CVA (cerebrovascular accident) (4) Hypertensive kidney disease (5) Diabetes (6) A-V fistula (7) Hemodialysis access site with mature fistula Review of Systems Review of Symptoms General ROS: no weight loss or fever Psychological ROS: no depression or mood changes, no memory loss Ophthalmic ROS: no visual changes or eye irritation ENT ROS: no nasal congestion, hearing loss, dizziness Allergy and Immunology ROS: no allergic symptoms or urticaria Hematological and Lymphatic ROS: no swollen glands, unusual bleeding or bruising Endocrine ROS: no polyuria, polydipsia, weight changes, temperature intolerance Respiratory ROS: no cough, shortness of breath, or wheezing Cardiovascular ROS: no chest pain or dyspnea on exertion Gastrointestinal ROS: denies abdominal pain, bright red blood in stool. Musculoskeletal ROS: no myalgias or arthralgias Neurological ROS: no TIA or stroke symptoms Dermatological ROS: no new or changing skin lesions, rashes or pruritis Physical Exam Physical Exam General appearance: alert, cooperative, no distress, appears stated age Head: Normocephalic, without obvious abnormality, atraumatic Eyes: conjunctivae/corneas clear. PERRL, EOM's intact. Fundi benign Throat: Lips, mucosa, and tongue normal. Teeth and gums normal Neck: supple, symmetrical, trachea midline, no adenopathy, thyroid: not enlarged, symmetric, no tenderness/mass/nodules, no carotid bruit and no JVD Lungs: clear to auscultation bilaterally Heart: regular rate and rhythm, S1, S2 normal, no murmur, click, rub or gallop Abdomen: soft, non-tender. Bowel sounds normal. No masses, no organomegaly Extremities: extremities normal, atraumatic, no cyanosis or edema. LUE AV fistula with active pulsatile bleeding from entry point of HD today Pulses: 2+ and symmetric Skin: Skin color, texture, turgor normal. No rashes or lesions Neurologic: Grossly normal Last 24 Hour Vital Signs Date Time Temp Pulse Resp B/P (MAP) Pulse Ox O2 Delivery O2 Flow Rate FiO2 09/11/18 15:30 82 27 165/85 95 Room Air 09/11/18 15:16 97.7 09/11/18 13:04 80 16 182/76 100 09/11/18 11:03 97.7 93 18 162/144 100 Room Air 09/11/18 11:03 93 20 Room Air 09/11/18 10:50 97.7 93 20 162/144 100 Room Air Laboratory Tests Test 09/11/18 11:15 White Blood Count 5.2 K/UL (4.8-10.8) Red Blood Count 4.03 M/UL (4.20-5.40) L Hemoglobin 11.7 G/DL (12.0-16.0) L Hematocrit 36.9 % (37.0-47.0) L Mean Corpuscular Volume 91 FL (80-99) Mean Corpuscular Hemoglobin 29.0 PG (27.0-31.0) Mean Corpuscular Hemoglobin Concent 31.7 G/DL (32.0-36.0) L Red Cell Distribution Width 16.4 % (11.6-14.8) H Platelet Count 175 K/UL (150-450) Mean Platelet Volume 5.5 FL (6.5-10.1) L Neutrophils (%) (Auto) 51.1 % (45.0-75.0) Lymphocytes (%) (Auto) 31.0 % (20.0-45.0) Monocytes (%) (Auto) 9.8 % (1.0-10.0) Eosinophils (%) (Auto) 6.8 % (0.0-3.0) H Basophils (%) (Auto) 1.4 % (0.0-2.0) Prothrombin Time 10.6 SEC (9.30-11.50) Prothromb Time International Ratio 1.0 (0.9-1.1) Activated Partial Thromboplast Time 25 SEC (23-33) Sodium Level 139 MMOL/L (136-145) Potassium Level 3.8 MMOL/L (3.5-5.1) Chloride Level 100 MMOL/L (98-107) Carbon Dioxide Level 29 MMOL/L (21-32) Anion Gap 10 mmol/L (5-15) Blood Urea Nitrogen 26 mg/dL (7-18) H Creatinine 4.6 MG/DL (0.55-1.30) H Estimat Glomerular Filtration Rate mL/min (>60) Glucose Level 140 MG/DL (74-106) H Calcium Level 10.0 MG/DL (8.5-10.1) Total Bilirubin 0.6 MG/DL (0.2-1.0) Aspartate Amino Transf (AST/SGOT) 40 U/L (15-37) H Alanine Aminotransferase (ALT/SGPT) 28 U/L (12-78) Alkaline Phosphatase 69 U/L (46-116) Total Protein 8.1 G/DL (6.4-8.2) Albumin 3.7 G/DL (3.4-5.0) Globulin 4.4 g/dL Albumin/Globulin Ratio 0.8 (1.0-2.7) L Height (Feet): 5 Height (Inches): 2.00 Weight (Pounds): 110 Assessment/Plan Problem List: (1) Hemorrhage of arteriovenous fistula Assessment & Plan: LUE AV fistula active pulsatile hemorrhage after HD this AM needs urgent repair. consent obtained from patient see procedure note -okay to d/c home after since no longer bleeding -f/u with PCP, vp of marketing, and vascular surgeon -needs suture removed soon. best if done by vascular surgeon. can f/u with me if desired thank you ICD Codes: T82.838A - Hemorrhage due to vascular prosthetic devices, implants and grafts, initial encounter SNOMED: [id number] [facility] Hospital declaration INPATIENT level of care is warranted for this patient because patient is a 89 year old with who presents with suspicion of . I have a high level of concern because . Patient is at high risk for . Plan of care/treatment include . Patient care is expected to be greater than 2 midnights. OBSERVATION level of care is warranted for this patient. Patient is a 89 year old with who presents with . Patient will be admitted for 1 midnight, but if additional night(s) is/are necessary, patient will be converted to inpatient status for the entire hospitalization Disposition: Once the patient is stable to leave the hospital, I anticipate the patient will likely be discharged to the following environment: Estimated discharge date: I spent 70 minutes on this patient's case, and minutes was dedicated to counseling and/or care coordination. MIPS ([employer]it-based Incentive Payment System) Applicable CPT: 89883, 84172 CHECK ALL THAT ARE MET: Measure #5 (CHF): All ages. Prescribe MARIA C/ARB upon discharge for patients with left ventricular systolic dysfunction. If not, the reason is clearly documented in the medical chart. Measure #8 (CHF): All ages. Prescribe a beta yamileth upon discharge for patients with left ventricular systolic dysfunction. If not, the reason is clearly documented in the medical chart. Measure #47 Advance care plan or surrogate decision maker documented in the medical record. Measure #130 The provider has documented, updated, or reviewed the patients current medication list and has documented it in the patients note. Measure #374 (All): Send report to referring provider. Measure #407(Sepsis due to MSSA bacteremia): Age 18+ Patient treated with a beta-lactam antibiotic (Nafcillin, Oxacillin or Cefazolin) as definitive therapy. MEDICAL COMPLEXITY High complexity medical decision making (need 2/3 categories) Problem - need 4 points Acute/new problem with new plan for workup (4 points, 1 max) Acute/new problem without additional workup (3 points, 1 max) Unstable chronic problem actively being managed (2 point each, 2 max) Stable chronic problem actively being managed (1 point each, 2 max) Self-limited/transient process (constipation, muscle ache, etc) (1 point each , 2 max) Data - need 4 points Reviewed labs/imaging studies (1 points, 2 max) Independent review of imaging (EKG, xrays, etc) (2 points, 2 max) Discussed case with consult/other MD/RN (2 points, 2 max) High Risk - qualify if have one of the following: Severe exacerbation of acute problem, acute mental status change, IV narcotics , monitoring drug levels (vancomycin, INR, tacrolimus etc) Clyde Clark Sep 11, 2018 17:37
--- NOTE | 2018-09-11 17:45 | Operative Note - PDOC ---
Operative Note Operative Note Date of Operation/Procedure: Sep 11, 2018 Pre-op Diagnosis: Hemorrhage from left upper arm AV fistula Procedure: hemostasis from left upper extremity av fistula hemorrhage Post-op Diagnosis: same as pre-op Surgeon: pat Specimen: none Complications: none Condition: stable Estimated Blood Loss: volume - 25 Drains: none Implant(s) used?: No Indications for Procedure 78 year old F on HD via LUE fistula. had HD this AM and when she went home noted hemorrhage. in ED active pulsatile bleeding noted from site. consent obtained. procedure indicated and recommended Description of Procedure patient made comfortable. left upper extremity protected, prepped and draped. area of pulsatile hemorrhage identified. 5-0 nylon figure of eight dermal suture placed and hemostasis obtained. monitored for 30 mins and no bleeding. d/c home stable. Clyde Clark Sep 11, 2018 17:45
[2018-09-11 18:07] VITALS: BP 178/76
[2018-09-11 18:19] VITALS: BP 178/76
== END 2018-09-11 18:22 | disposition home or self-care (01) ==
LOC: EDBD 10:50 → EMR 11:25 → EDBEDREQ 12:41 → CANBEDREQ 17:26 → EMR 18:22
DX: T82.838A Hemorrhage due to vascular prosthetic devices, implants and grafts, initial encounter (principal); Y83.2 Surgical operation with anastomosis, bypass or graft as the cause of abnormal reaction of the patient, or of later complication, without mention of misadventure at the time of the procedure; Y92.009 Unspecified place in unspecified non-institutional (private) residence as the place of occurrence of the external cause; I25.10 Atherosclerotic heart disease of native coronary artery without angina pectoris; I12.0 Hypertensive chronic kidney disease with stage 5 chronic kidney disease or end stage renal disease; E11.22 Type 2 diabetes mellitus with diabetic chronic kidney disease; N18.6 End stage renal disease; Z99.2 Dependence on renal dialysis
CPT/HCPCS: 36415; 80053; 85025; 85610; 85730; 99291